=== PATIENT | female | born 1940 | race Caucasian/White ===

== ENCOUNTER 2023-12-23 16:56 | Emergency (ER) | payer OTHER, SELFPAY ==
[2023-12-23 17:07] VITALS: BP 142/89; PULSE 88; RESP 18; TEMP 36.6; O2SAT 99; BMI 20.6
--- NOTE | 2023-12-23 17:26 | XR_ITS ---
Examination: Duplex scan of the lower extremity, unilateral left complete Date and time of exam: December 23, 2023 1809 hrs. 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 There is no evidence of deep vein thrombosis. Normal color flow and spectral analysis Impression: Negative for DVT..
--- NOTE | 2023-12-23 17:26 | XR_ITS ---
EXAMINATION: Ankle, left 3 views . Technique: Ankle AP, oblique, lateral 3 views Date and time of exam: 07/22/2023 1731 hrs. 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 Recommend MRI tibia-fibula follow-up to exclude early osteomyelitis involving the tibia
--- NOTE | 2023-12-23 17:27 | PD.EDRME ---
Rapid Medical Screening Exam RME Arrival date/time: 12/23/23 16:56 83-year-old female presents to the emergency department complains of wound left lower extremity with delayed healing Chief Complaint: Skin/Abscess/Foreign Body Time Seen by Provider: 12/23/23 17:00 Vital signs: Vital Signs Temperature 97.9 F 12/23/23 17:07 Pulse Rate 88 12/23/23 17:07 Respiratory Rate 18 12/23/23 17:07 Blood Pressure 142/89 H 12/23/23 17:07 Pulse Oximetry (%) 99 12/23/23 17:07 Oxygen Delivery Method Room Air 12/23/23 17:07
[2023-12-23 18:15] LABS: Lactate (Lactic Acid) 0.9 mMol/L (0.4-2.0)
[2023-12-23 18:18] LABS: Basophils % (Auto) 1 % (0-2.5); Eosinophils # (Auto) 0.2 Thou/mm3 (0.0-0.5); Eosinophils % (Auto) 3 % (0-10); Hematocrit 35.3 % (36.0-46.0); Hemoglobin 11.7 g/dL (12.0-16.0); Immature Granulocytes % (Auto) 0 % (0-0); Immature Granulocytes Auto 0.02 Thou/mm3 (0.00-0.00); Lymphocytes # (Auto) 2.3 Thou/mm3 (1.0-4.8); Lymphocytes % (Auto) 32 % (10-50); Mean Corpuscular HGB Conc 33.1 g/dl (31.0-37.0); Mean Corpuscular Hemoglobin 31.1 pg (25.0-35.0); Mean Corpuscular Volume 94 fL (80-100); Monocytes # (Auto) 0.6 Thou/mm3 (0.0-0.8); Monocytes % (Auto) 8 % (0-12); Neutrophils # (Auto) 3.9 Thou/mm3 (1.8-7.7); Neutrophils % (Auto) 56 % (37-80); Nucleated Red Blood Cell % 0 /100 WBC (0); Platelet Count 321 Thou/mm3 (140-440); RDW Standard Deviation 44.1 fL (36.4-46.3); Red Blood Count 3.76 Miln/mm3 (4.00-5.20)
[2023-12-23 18:34] LABS: Sed Rate (ESR) 45 mm/hr (0-30)
[2023-12-23 18:45] LABS: Alanine Aminotransferase 11 U/L (10-49); Albumin/Globulin Ratio 1.7 (1.2-2.2); Alkaline Phosphatase 74 U/L (46-116); Anion Gap 7 (7-16); Aspartate Amino Transferase 24 U/L (0-34); BUN/Creatinine Ratio 19 Ratio (12-20); Bilirubin,Total 0.4 mg/dL (0.3-1.2); Blood Urea Nitrogen 31 mg/dL (9-23); C-Reactive Protein < 0.4 mg/dL (0.0-0.9); Calcium 10.1 mg/dL (8.3-10.6); Calcium (Corrected) 10.1 mg/dL (8.5-10.1); Carbon Dioxide 23.8 mMol/L (20.0-31.0); Chloride 109 mMol/L (98-107); Creatinine (Component) 1.6 mg/dL (0.6-1.3); Estimated Creatinine Clearance 20.7 mL/min (>60); Glucose 90 mg/dL (74-106); Osmolality,Calculated 285 (275-295); Potassium 3.6 mMol/L (3.4-5.1); Sodium 140 mMol/L (136-145); eGFR 32 See Note
[2023-12-23 18:49] LABS: Procalcitonin 0.08 ng/ml (0.0-0.49)
--- NOTE | 2023-12-23 19:01 | PC.NURSE ---
Pt and pt's family informed us that they are leaving and going home.
== END 2023-12-23 19:03 | disposition left against medical advice (07) ==
LOC: SERX 18:02
PROVIDERS: Nurse Practitioner Primary Care; Emergency Provider Emergency Medicine; PCP Family Medicine
DX: S91.002D Unspecified open wound, left ankle, subsequent encounter (principal); X58.XXXD Exposure to other specified factors, subsequent encounter; Z53.29 Procedure and treatment not carried out because of patient's decision for other reasons
CPT/HCPCS: 36415; 73610; 80053; 83605; 84145; 85025; 85652; 86140; 93971; 99281

== ENCOUNTER → 2024-01-08 | Outpatient (CLI) | payer OTHER, SELFPAY | END | disposition home or self-care (01) | LOC: SWHD 09:40 | PROVIDERS: PCP Nurse Practitioner Family; Referring Provider Nurse Practitioner Family; Visit Provider Student in an Organized Health Care Education/Training Program | DX: L97.822 Non-pressure chronic ulcer of other part of left lower leg with fat layer exposed (principal); I10 Essential (primary) hypertension; E11.69 Type 2 diabetes mellitus with other specified complication; E03.9 Hypothyroidism, unspecified; F03.90 Unspecified dementia, unspecified severity, without behavioral disturbance, psychotic disturbance, mood disturbance, and anxiety | CPT/HCPCS: 97597; 97598; 99213; A9270; G0463 ==

== ENCOUNTER → 2024-01-08 | Outpatient (CLI) | payer OTHER, SELFPAY | END | disposition home or self-care (01) | LOC: SLDO 16:15 | PROVIDERS: Referring Provider Student in an Organized Health Care Education/Training Program; Visit Provider Student in an Organized Health Care Education/Training Program | DX: L97.822 Non-pressure chronic ulcer of other part of left lower leg with fat layer exposed (principal) | CPT/HCPCS: 87070; 87075; 87077; 87186; 87205 ==

== ENCOUNTER → 2024-01-08 | Outpatient (CLI) | payer OTHER, SELFPAY ==
[2024-01-08 10:58] LABS: Basophils % (Auto) 1 % (0-2.5); Eosinophils # (Auto) 0.2 Thou/mm3 (0.0-0.5); Eosinophils % (Auto) 4 % (0-10); Hematocrit 34.2 % (36.0-46.0); Hemoglobin 11.4 g/dL (12.0-16.0); Immature Granulocytes % (Auto) 0 % (0-0); Immature Granulocytes Auto 0.02 Thou/mm3 (0.00-0.00); Lymphocytes % (Auto) 31 % (10-50); Mean Corpuscular HGB Conc 33.3 g/dl (31.0-37.0); Mean Corpuscular Hemoglobin 31.5 pg (25.0-35.0); Mean Corpuscular Volume 95 fL (80-100); Monocytes # (Auto) 0.6 Thou/mm3 (0.0-0.8); Monocytes % (Auto) 10 % (0-12); Neutrophils # (Auto) 3.4 Thou/mm3 (1.8-7.7); Neutrophils % (Auto) 55 % (37-80); Nucleated Red Blood Cell % 0 /100 WBC (0); Platelet Count 278 Thou/mm3 (140-440); RDW Standard Deviation 43.8 fL (36.4-46.3); Red Blood Count 3.62 Miln/mm3 (4.00-5.20); White Blood Count 6.2 Thou/mm3 (3.6-11.0)
[2024-01-08 11:02] LABS: Parathyroid Hormone Intact 142.2 pg/ml (18.5-88.0)
[2024-01-08 11:03] LABS: Alanine Aminotransferase 12 U/L (10-49); Albumin, Serum 4.9 gm/dL (3.4-4.8); Albumin/Globulin Ratio 1.7 (1.2-2.2); Alkaline Phosphatase 71 U/L (46-116); Anion Gap 9 (7-16); Aspartate Amino Transferase 23 U/L (0-34); BUN/Creatinine Ratio 20 Ratio (12-20); Bilirubin,Total 0.4 mg/dL (0.3-1.2); Blood Urea Nitrogen 38 mg/dL (9-23); Calcium 9.9 mg/dL (8.3-10.6); Calcium (Corrected) 9.9 mg/dL (8.5-10.1); Carbon Dioxide 25.4 mMol/L (20.0-31.0); Chloride 105 mMol/L (98-107); Creatinine (Component) 1.9 mg/dL (0.6-1.3); Globulin 2.9 gm/dL (2.3-3.5); Glucose 79 mg/dL (74-106); Osmolality,Calculated 285 (275-295); Sodium 139 mMol/L (136-145); Total Protein 7.8 gm/dL (5.7-8.2); eGFR 26 See Note
[2024-01-08 11:33] LABS: Folate 12.68 ng/mL (>5.38); Vitamin B12 595 pg/mL (211-911)
[2024-01-15 06:50] LABS: Homocysteine* 37.1 umol/L (<10.4); Methylmalonic Acid, GC/MS/MS* 249 nmol/L (85-423)
== END | disposition home or self-care (01) ==
LOC: COPL 08:59
PROVIDERS: PCP Nurse Practitioner Family; Referring Provider Nurse Practitioner Family; Visit Provider Nurse Practitioner Family
DX: D64.9 Anemia, unspecified (principal); N17.9 Acute kidney failure, unspecified
CPT/HCPCS: 36415; 80053; 82607; 82746; 83090; 83921; 83970; 85025

== ENCOUNTER → 2024-01-15 | Outpatient (CLI) | payer OTHER, SELFPAY | END | disposition home or self-care (01) | LOC: SWHD 13:42 | PROVIDERS: PCP Family Medicine; Referring Provider Family Medicine; Visit Provider Surgery | DX: L97.822 Non-pressure chronic ulcer of other part of left lower leg with fat layer exposed (principal); I10 Essential (primary) hypertension; E11.69 Type 2 diabetes mellitus with other specified complication; E03.9 Hypothyroidism, unspecified; F03.90 Unspecified dementia, unspecified severity, without behavioral disturbance, psychotic disturbance, mood disturbance, and anxiety | CPT/HCPCS: 97597; A9270 ==

== ENCOUNTER → 2024-01-15 | Outpatient (CLI) | payer OTHER, SELFPAY ==
--- NOTE | 2024-01-15 08:38 | XR_ITS ---
Examination: Retroperitoneal ultrasound, complete Technique: Multiple high resolution grayscale images of the retroperitoneum obtained, including kidneys and bladder. Exam date and time:January 15, 2024 0848 hours INDICATIONS: Diagnosis chronic kidney disease stage IV, elevated creatinine 1.9 on laboratory examination January 08, 2024 FINDINGS: Right kidney 9.0 x 4.5 x 4.9 cm cortex 1.3 cm Left kidney 9.4 x 3.8 x 4.4 cm cortex 1.6 cm Mild bilateral renal parenchymal scar formation No hydronephrosis No bladder mass or bladder calculi Bladder prevoid volume 94 cc postvoid volume 20 cc IMPRESSION: Small kidneys with bilateral renal cortical thinning Mild bilateral renal parenchymal scar formation No hydronephrosis
[2024-01-15 09:59] LABS: Misc Send Out* See Sep Rpt
[2024-01-15 10:41] LABS: Basophils % (Auto) 0 % (0-2.5); Eosinophils # (Auto) 0.2 Thou/mm3 (0.0-0.5); Eosinophils % (Auto) 2 % (0-10); Hematocrit 33.5 % (36.0-46.0); Hemoglobin 11.2 g/dL (12.0-16.0); Immature Granulocytes % (Auto) 0 % (0-0); Immature Granulocytes Auto 0.01 Thou/mm3 (0.00-0.00); Immature Reticulocyte Fraction 5.7 % (3.0-15.9); Lymphocytes # (Auto) 1.7 Thou/mm3 (1.0-4.8); Lymphocytes % (Auto) 25 % (10-50); Mean Corpuscular HGB Conc 33.4 g/dl (31.0-37.0); Mean Corpuscular Hemoglobin 31.4 pg (25.0-35.0); Mean Corpuscular Volume 94 fL (80-100); Monocytes # (Auto) 0.5 Thou/mm3 (0.0-0.8); Monocytes % (Auto) 7 % (0-12); Neutrophils # (Auto) 4.5 Thou/mm3 (1.8-7.7); Neutrophils % (Auto) 65 % (37-80); Nucleated Red Blood Cell % 0 /100 WBC (0); Platelet Count 282 Thou/mm3 (140-440); RDW Standard Deviation 43.3 fL (36.4-46.3); Red Blood Count 3.57 Miln/mm3 (4.00-5.20); Reticulocyte Hgb Content 35.8 pg (28.0-35.0); White Blood Count 6.9 Thou/mm3 (3.6-11.0)
[2024-01-15 10:55] LABS: Glucose Estimated Average 97 mg/dL (80-131)
[2024-01-15 11:06] LABS: Parathyroid Hormone Intact 91.9 pg/ml (18.5-88.0)
[2024-01-15 11:11] LABS: Folate 12.37 ng/mL (>5.38); Vitamin B12 570 pg/mL (211-911); Vitamin D 25 Hydroxy Total 46.6 ng/mL (7.3-40.2)
[2024-01-15 11:17] LABS: Alanine Aminotransferase 16 U/L (10-49); Albumin, Serum 4.9 gm/dL (3.4-4.8); Albumin/Globulin Ratio 2.1 (1.2-2.2); Alkaline Phosphatase 59 U/L (46-116); Anion Gap 11 (7-16); Aspartate Amino Transferase 26 U/L (0-34); BUN/Creatinine Ratio 20 Ratio (12-20); Bilirubin,Total 0.5 mg/dL (0.3-1.2); Blood Urea Nitrogen 22 mg/dL (9-23); Calcium 9.6 mg/dL (8.3-10.6); Calcium (Corrected) 9.6 mg/dL (8.5-10.1); Carbon Dioxide 21.5 mMol/L (20.0-31.0); Cardiac Risk Estimate 3.1 RATIO (3.7-5.6); Chloride 105 mMol/L (98-107); Cholesterol 201 mg/dL (132-200); Creatinine (Component) 1.1 mg/dL (0.6-1.3); Free T4 (Free Thyroxine) 2.04 ng/dL (0.89-1.76); Globulin 2.3 gm/dL (2.3-3.5); Glucose 80 mg/dL (74-106); HDL Cholesterol 64 mg/dL (40-60); LDL Cholesterol,Calculated 119 mg/dL (0-130); Osmolality,Calculated 276 (275-295); Phosphorous 1.7 mg/dL (2.4-5.1); Potassium 3.8 mMol/L (3.4-5.1); Sodium 137 mMol/L (136-145); Thyroid Stimulating Hormone 0.79 uIU/mL (0.55-4.78); Total Protein 7.2 gm/dL (5.7-8.2); Triglycerides 88 mg/dL (30-150); Uric Acid 8.4 mg/dL (3.1-7.8); eGFR 50 See Note
[2024-01-15 11:49] LABS: Collection Type, Urine Clean Catch
[2024-01-15 12:19] LABS: Creatinine MALB Rnd Ur 17 mg/dL (30-125); Microalbumin Creat Ratio 76 mg/gCrea (<30); Microalbumin, Random Urine 13 mg/L (0-300)
[2024-01-15 12:20] LABS: Ferritin 74 ng/mL (7.3-270.7); Iron 78 mcg/dL (50-170); Percent Iron Saturation 27 % (20-55); Total Iron Binding Capacity 279 mcg/dL (250-425); Unsaturated Iron Binding 201 (225-295)
[2024-01-15 13:20] LABS: Bacteria,Urine 3+; Bilirubin,Urine Negative (Negative); Blood,Urine Trace (Negative); Clarity,Urine Turbid (Clear/Hazy); Color,Urine Colorless (Lt Yel-Yel); Glucose, Urine Negative (Negative); Ketones,Urine Negative (Negative); Leukocyte Esterase,Urine Positive (Negative); Nitrite,Urine Negative (Negative); Protein,Urine Negative (Neg - Trace); RBC,Urine 1 /hpf (0-3); Specific Gravity,Urine 1.004 (1.001-1.035); Squamous Epithelial Cell,Urine < 1 /hpf (0-5); Urobilinogen,Urine Negative mg/dL (0.0-1.0); WBC,Urine 21 /hpf (0-5)
[2024-01-22 06:50] LABS: ANA Screen, IFA NEGATIVE (NEGATIVE)
== END | disposition home or self-care (01) ==
LOC: CDIM 08:35 → COPL 09:25
PROVIDERS: Nurse Practitioner Family; PCP Family Medicine; Referring Provider Internal Medicine Nephrology; Visit Provider Radiology Diagnostic Radiology
DX: N28.89 Other specified disorders of kidney and ureter (principal); I12.9 Hypertensive chronic kidney disease with stage 1 through stage 4 chronic kidney disease, or unspecified chronic kidney disease; N18.4 Chronic kidney disease, stage 4 (severe); D63.1 Anemia in chronic kidney disease; N39.0 Urinary tract infection, site not specified; E78.5 Hyperlipidemia, unspecified; R73.9 Hyperglycemia, unspecified; M10.30 Gout due to renal impairment, unspecified site; E21.3 Hyperparathyroidism, unspecified; E03.9 Hypothyroidism, unspecified; E55.9 Vitamin D deficiency, unspecified
CPT/HCPCS: 36415; 76770; 80053; 80061; 81001; 82043; 82306; 82570; 82607; 82610; 82728; 82746; 83036; 83540; 83550; 83970; 84100; 84439; 84443; 84550; 85025; 85046; 86038

== ENCOUNTER → 2024-01-22 | Outpatient (CLI) | payer OTHER, SELFPAY | END | disposition home or self-care (01) | LOC: SWHD 14:20 | PROVIDERS: PCP Family Medicine; Referring Provider Family Medicine; Visit Provider Student in an Organized Health Care Education/Training Program | DX: L97.822 Non-pressure chronic ulcer of other part of left lower leg with fat layer exposed (principal); I10 Essential (primary) hypertension; E11.69 Type 2 diabetes mellitus with other specified complication; E03.9 Hypothyroidism, unspecified; F03.90 Unspecified dementia, unspecified severity, without behavioral disturbance, psychotic disturbance, mood disturbance, and anxiety | CPT/HCPCS: 11042; A9270 ==

== ENCOUNTER → 2024-01-29 | Outpatient (CLI) | payer OTHER, SELFPAY ==
[2024-01-29 09:30] LABS: Basophils % (Auto) 1 % (0-2.5); Eosinophils # (Auto) 0.1 Thou/mm3 (0.0-0.5); Eosinophils % (Auto) 2 % (0-10); Hematocrit 33.1 % (36.0-46.0); Hemoglobin 11.2 g/dL (12.0-16.0); Immature Granulocytes % (Auto) 0 % (0-0); Immature Granulocytes Auto 0.01 Thou/mm3 (0.00-0.00); Lymphocytes # (Auto) 1.4 Thou/mm3 (1.0-4.8); Lymphocytes % (Auto) 27 % (10-50); Mean Corpuscular HGB Conc 33.8 g/dl (31.0-37.0); Mean Corpuscular Hemoglobin 31.5 pg (25.0-35.0); Mean Corpuscular Volume 93 fL (80-100); Monocytes # (Auto) 0.4 Thou/mm3 (0.0-0.8); Monocytes % (Auto) 8 % (0-12); Neutrophils # (Auto) 3.2 Thou/mm3 (1.8-7.7); Neutrophils % (Auto) 61 % (37-80); Nucleated Red Blood Cell % 0 /100 WBC (0); Platelet Count 274 Thou/mm3 (140-440); RDW Standard Deviation 43.8 fL (36.4-46.3); Red Blood Count 3.55 Miln/mm3 (4.00-5.20); White Blood Count 5.3 Thou/mm3 (3.6-11.0)
[2024-01-29 09:59] LABS: Folate 12.51 ng/mL (>5.38); Vitamin B12 529 pg/mL (211-911)
[2024-01-29 10:04] LABS: Alanine Aminotransferase 15 U/L (10-49); Albumin, Serum 4.7 gm/dL (3.4-4.8); Alkaline Phosphatase 61 U/L (46-116); Anion Gap 9 (7-16); Aspartate Amino Transferase 20 U/L (0-34); BUN/Creatinine Ratio 18 Ratio (12-20); Bilirubin,Total 0.4 mg/dL (0.3-1.2); Blood Urea Nitrogen 16 mg/dL (9-23); Carbon Dioxide 23.8 mMol/L (20.0-31.0); Cardiac Risk Estimate 2.9 RATIO (3.7-5.6); Chloride 108 mMol/L (98-107); Cholesterol 185 mg/dL (132-200); Creatinine (Component) 0.9 mg/dL (0.6-1.3); Free T4 (Free Thyroxine) 1.66 ng/dL (0.89-1.76); Globulin 2.4 gm/dL (2.3-3.5); Glucose 89 mg/dL (74-106); HDL Cholesterol 63 mg/dL (40-60); LDL Cholesterol,Calculated 102 mg/dL (0-130); Osmolality,Calculated 281 (275-295); Phosphorous 3.4 mg/dL (2.4-5.1); Potassium 3.7 mMol/L (3.4-5.1); Sodium 141 mMol/L (136-145); Thyroid Stimulating Hormone 0.62 uIU/mL (0.55-4.78); Total Protein 7.1 gm/dL (5.7-8.2); Triglycerides 100 mg/dL (30-150); eGFR > 60 See Note
[2024-01-29 11:02] LABS: Ferritin 75 ng/mL (7.3-270.7); Total Iron Binding Capacity 277 mcg/dL (250-425)
[2024-01-29 11:12] LABS: Iron 84 mcg/dL (50-170); Percent Iron Saturation 30 % (20-55); Unsaturated Iron Binding 193 (225-295)
[2024-01-29 17:46] LABS: Creatinine MALB Rnd Ur 32 mg/dL (30-125); Microalbumin Creat Ratio 16 mg/gCrea (<30); Microalbumin, Random Urine 5 mg/L (0-300)
== END | disposition home or self-care (01) ==
PROVIDERS: PCP Family Medicine; Referring Provider Internal Medicine Nephrology; Visit Provider Internal Medicine Nephrology
DX: I12.9 Hypertensive chronic kidney disease with stage 1 through stage 4 chronic kidney disease, or unspecified chronic kidney disease (principal); N18.9 Chronic kidney disease, unspecified; D63.1 Anemia in chronic kidney disease; E21.3 Hyperparathyroidism, unspecified; E78.5 Hyperlipidemia, unspecified; E03.9 Hypothyroidism, unspecified; M10.30 Gout due to renal impairment, unspecified site
CPT/HCPCS: 36415; 80053; 80061; 82043; 82570; 82607; 82728; 82746; 83540; 83550; 83970; 84100; 84439; 84443; 84550; 85025

== ENCOUNTER → 2024-01-29 | Outpatient (CLI) | payer OTHER, SELFPAY | END | disposition home or self-care (01) | LOC: SWHD 14:37 | PROVIDERS: PCP Family Medicine; Referring Provider Family Medicine; Visit Provider Student in an Organized Health Care Education/Training Program | DX: L97.822 Non-pressure chronic ulcer of other part of left lower leg with fat layer exposed (principal); I10 Essential (primary) hypertension; E11.69 Type 2 diabetes mellitus with other specified complication; E03.9 Hypothyroidism, unspecified; F03.90 Unspecified dementia, unspecified severity, without behavioral disturbance, psychotic disturbance, mood disturbance, and anxiety | CPT/HCPCS: 29581; A9270 ==

== ENCOUNTER → 2024-02-14 | Outpatient (CLI) | payer OTHER, SELFPAY | END | disposition home or self-care (01) | LOC: SWHD 13:18 | PROVIDERS: PCP Family Medicine; Referring Provider Family Medicine; Visit Provider Surgery | DX: L97.822 Non-pressure chronic ulcer of other part of left lower leg with fat layer exposed (principal); I10 Essential (primary) hypertension; E11.69 Type 2 diabetes mellitus with other specified complication; E03.9 Hypothyroidism, unspecified; F03.90 Unspecified dementia, unspecified severity, without behavioral disturbance, psychotic disturbance, mood disturbance, and anxiety | CPT/HCPCS: 11042; A9270 ==

== ENCOUNTER → 2024-02-19 | Outpatient (CLI) | payer OTHER, SELFPAY ==
[2024-02-19 11:56] LABS: Basophils % (Auto) 1 % (0-2.5); Eosinophils # (Auto) 0.2 Thou/mm3 (0.0-0.5); Eosinophils % (Auto) 3 % (0-10); Hematocrit 36.1 % (36.0-46.0); Immature Granulocytes % (Auto) 0 % (0-0); Immature Granulocytes Auto 0.01 Thou/mm3 (0.00-0.00); Lymphocytes # (Auto) 1.8 Thou/mm3 (1.0-4.8); Lymphocytes % (Auto) 29 % (10-50); Mean Corpuscular HGB Conc 33.2 g/dl (31.0-37.0); Mean Corpuscular Hemoglobin 31.4 pg (25.0-35.0); Mean Corpuscular Volume 95 fL (80-100); Monocytes # (Auto) 0.6 Thou/mm3 (0.0-0.8); Monocytes % (Auto) 11 % (0-12); Neutrophils # (Auto) 3.5 Thou/mm3 (1.8-7.7); Neutrophils % (Auto) 57 % (37-80); Nucleated Red Blood Cell % 0 /100 WBC (0); Platelet Count 287 Thou/mm3 (140-440); RDW Standard Deviation 44.4 fL (36.4-46.3); Red Blood Count 3.82 Miln/mm3 (4.00-5.20); White Blood Count 6.1 Thou/mm3 (3.6-11.0)
[2024-02-19 12:08] LABS: Alanine Aminotransferase 13 U/L (10-49); Albumin, Serum 4.7 gm/dL (3.4-4.8); Albumin/Globulin Ratio 1.8 (1.2-2.2); Alkaline Phosphatase 76 U/L (46-116); Anion Gap 10 (7-16); Aspartate Amino Transferase 24 U/L (0-34); BUN/Creatinine Ratio 19 Ratio (12-20); Bilirubin,Total 0.3 mg/dL (0.3-1.2); Blood Urea Nitrogen 17 mg/dL (9-23); Calcium 10.1 mg/dL (8.3-10.6); Calcium (Corrected) 10.1 mg/dL (8.5-10.1); Carbon Dioxide 23.5 mMol/L (20.0-31.0); Chloride 108 mMol/L (98-107); Creatinine (Component) 0.9 mg/dL (0.6-1.3); Globulin 2.6 gm/dL (2.3-3.5); Glucose 88 mg/dL (74-106); Osmolality,Calculated 281 (275-295); Phosphorous 3.5 mg/dL (2.4-5.1); Sodium 141 mMol/L (136-145); Total Protein 7.3 gm/dL (5.7-8.2); eGFR > 60 See Note
[2024-02-19 18:32] LABS: Folate 15.37 ng/mL (>5.38); Vitamin B12 377 pg/mL (211-911)
[2024-02-19 18:38] LABS: Parathyroid Hormone Intact 53.1 pg/ml (18.5-88.0)
[2024-02-19 20:57] LABS: Ferritin 54 ng/mL (7.3-270.7); Iron 69 mcg/dL (50-170); Total Iron Binding Capacity 310 mcg/dL (250-425)
== END | disposition home or self-care (01) ==
LOC: COPL 10:56
PROVIDERS: PCP Family Medicine; Referring Provider Internal Medicine Nephrology; Visit Provider Internal Medicine Nephrology
DX: I12.9 Hypertensive chronic kidney disease with stage 1 through stage 4 chronic kidney disease, or unspecified chronic kidney disease (principal); N18.9 Chronic kidney disease, unspecified; D63.1 Anemia in chronic kidney disease; E21.3 Hyperparathyroidism, unspecified
CPT/HCPCS: 36415; 80053; 82607; 82728; 82746; 83540; 83550; 83970; 84100; 85025

== ENCOUNTER → 2024-02-20 | Outpatient (CLI) | payer OTHER, SELFPAY | END | disposition home or self-care (01) | LOC: SWHD 10:24 | PROVIDERS: PCP Family Medicine; Referring Provider Family Medicine; Visit Provider Surgery | DX: I10 Essential (primary) hypertension (principal); E11.69 Type 2 diabetes mellitus with other specified complication; E03.9 Hypothyroidism, unspecified; F03.90 Unspecified dementia, unspecified severity, without behavioral disturbance, psychotic disturbance, mood disturbance, and anxiety | CPT/HCPCS: 11042; A9270 ==

== ENCOUNTER → 2024-02-27 | Outpatient (CLI) | payer OTHER, SELFPAY | END | disposition home or self-care (01) | LOC: SWHD 13:25 | PROVIDERS: PCP Family Medicine; Referring Provider Family Medicine; Visit Provider Student in an Organized Health Care Education/Training Program | DX: L97.822 Non-pressure chronic ulcer of other part of left lower leg with fat layer exposed (principal); I10 Essential (primary) hypertension; E11.69 Type 2 diabetes mellitus with other specified complication; E03.9 Hypothyroidism, unspecified; L85.3 Xerosis cutis; F03.90 Unspecified dementia, unspecified severity, without behavioral disturbance, psychotic disturbance, mood disturbance, and anxiety; R60.0 Localized edema | CPT/HCPCS: 29581; A9270 ==

== ENCOUNTER → 2024-03-04 | Outpatient (CLI) | payer OTHER, SELFPAY ==
--- NOTE | 2024-03-04 | XR_ITS ---
Examination: Left lower leg 2 views Technique one AP lateral left lower leg 2 views Exam date and time: March 04, 2024 1402 hours INDICATIONS: Anterior lower leg pain beginning 3 months ago. FINDINGS: No fracture or dislocation Moderate osteopenia Soft tissue vascular calcification No cortical bone obstruction IMPRESSION: No fracture or dislocation
[2024-03-04 14:25] LABS: Basophils % (Auto) 0 % (0-2.5); Eosinophils # (Auto) 0.1 Thou/mm3 (0.0-0.5); Eosinophils % (Auto) 2 % (0-10); Hematocrit 37.5 % (36.0-46.0); Hemoglobin 12.5 g/dL (12.0-16.0); Immature Granulocytes % (Auto) 0 % (0-0); Immature Granulocytes Auto 0.01 Thou/mm3 (0.00-0.00); Lymphocytes % (Auto) 32 % (10-50); Mean Corpuscular HGB Conc 33.3 g/dl (31.0-37.0); Mean Corpuscular Volume 93 fL (80-100); Monocytes # (Auto) 0.6 Thou/mm3 (0.0-0.8); Monocytes % (Auto) 9 % (0-12); Neutrophils # (Auto) 3.5 Thou/mm3 (1.8-7.7); Neutrophils % (Auto) 57 % (37-80); Nucleated Red Blood Cell % 0 /100 WBC (0); Platelet Count 306 Thou/mm3 (140-440); RDW Standard Deviation 42.9 fL (36.4-46.3); Red Blood Count 4.03 Miln/mm3 (4.00-5.20); White Blood Count 6.2 Thou/mm3 (3.6-11.0)
[2024-03-04 14:39] LABS: Alanine Aminotransferase 12 U/L (10-49); Albumin, Serum 4.8 gm/dL (3.4-4.8); Albumin/Globulin Ratio 1.8 (1.2-2.2); Alkaline Phosphatase 66 U/L (46-116); Anion Gap 10 (7-16); Aspartate Amino Transferase 18 U/L (0-34); BUN/Creatinine Ratio 20 Ratio (12-20); Bilirubin,Total 0.5 mg/dL (0.3-1.2); Blood Urea Nitrogen 16 mg/dL (9-23); Carbon Dioxide 23.5 mMol/L (20.0-31.0); Cardiac Risk Estimate 2.8 RATIO (3.7-5.6); Chloride 107 mMol/L (98-107); Cholesterol 208 mg/dL (132-200); Creatinine (Component) 0.8 mg/dL (0.6-1.3); Globulin 2.7 gm/dL (2.3-3.5); Glucose 82 mg/dL (74-106); HDL Cholesterol 74 mg/dL (40-60); LDL Cholesterol,Calculated 116 mg/dL (0-130); Osmolality,Calculated 279 (275-295); Potassium 3.9 mMol/L (3.4-5.1); Sodium 140 mMol/L (136-145); Thyroid Stimulating Hormone 0.69 uIU/mL (0.55-4.78); Total Protein 7.5 gm/dL (5.7-8.2); Triglycerides 91 mg/dL (30-150); eGFR > 60 See Note
[2024-03-04 14:41] LABS: Glucose Estimated Average 94 mg/dL (80-131); Hemoglobin A1C 4.9 % Hgb (4.8-6.0)
== END | disposition home or self-care (01) ==
PROVIDERS: PCP Family Medicine; Referring Provider Nurse Practitioner Family; Visit Provider Nurse Practitioner Family
DX: M79.605 Pain in left leg (principal); M79.604 Pain in right leg; I10 Essential (primary) hypertension; E03.9 Hypothyroidism, unspecified; E78.5 Hyperlipidemia, unspecified
CPT/HCPCS: 36415; 73590; 80053; 80061; 83036; 84436; 84443; 85025

== ENCOUNTER → 2024-03-05 | Outpatient (CLI) | payer OTHER, SELFPAY | END | disposition home or self-care (01) | LOC: SWHD 13:38 | PROVIDERS: PCP Family Medicine; Referring Provider Family Medicine; Visit Provider Student in an Organized Health Care Education/Training Program | DX: L97.822 Non-pressure chronic ulcer of other part of left lower leg with fat layer exposed (principal); S81.802A Unspecified open wound, left lower leg, initial encounter; X58.XXXA Exposure to other specified factors, initial encounter; E11.69 Type 2 diabetes mellitus with other specified complication; E03.9 Hypothyroidism, unspecified; L85.3 Xerosis cutis; F03.90 Unspecified dementia, unspecified severity, without behavioral disturbance, psychotic disturbance, mood disturbance, and anxiety; R60.0 Localized edema | CPT/HCPCS: 99213; G0463 ==

== ENCOUNTER → 2024-03-11 | Outpatient (CLI) | payer OTHER, MEDICAID, SELFPAY ==
[2024-03-11 12:08] LABS: Basophils % (Auto) 1 % (0-2.5); Eosinophils # (Auto) 0.1 Thou/mm3 (0.0-0.5); Eosinophils % (Auto) 2 % (0-10); Hematocrit 35.8 % (36.0-46.0); Immature Granulocytes % (Auto) 0 % (0-0); Immature Granulocytes Auto 0.01 Thou/mm3 (0.00-0.00); Lymphocytes # (Auto) 2.1 Thou/mm3 (1.0-4.8); Lymphocytes % (Auto) 33 % (10-50); Mean Corpuscular HGB Conc 33.5 g/dl (31.0-37.0); Mean Corpuscular Hemoglobin 31.5 pg (25.0-35.0); Mean Corpuscular Volume 94 fL (80-100); Monocytes # (Auto) 0.6 Thou/mm3 (0.0-0.8); Monocytes % (Auto) 9 % (0-12); Neutrophils # (Auto) 3.6 Thou/mm3 (1.8-7.7); Neutrophils % (Auto) 56 % (37-80); Nucleated Red Blood Cell % 0 /100 WBC (0); Platelet Count 279 Thou/mm3 (140-440); RDW Standard Deviation 43.4 fL (36.4-46.3); Red Blood Count 3.81 Miln/mm3 (4.00-5.20); White Blood Count 6.4 Thou/mm3 (3.6-11.0)
[2024-03-11 12:16] LABS: Alanine Aminotransferase 15 U/L (10-49); Albumin, Serum 4.5 gm/dL (3.4-4.8); Albumin/Globulin Ratio 1.7 (1.2-2.2); Alkaline Phosphatase 65 U/L (46-116); Anion Gap 10 (7-16); Aspartate Amino Transferase 25 U/L (0-34); BUN/Creatinine Ratio 18 Ratio (12-20); Bilirubin,Total 0.5 mg/dL (0.3-1.2); Blood Urea Nitrogen 14 mg/dL (9-23); Carbon Dioxide 23.4 mMol/L (20.0-31.0); Chloride 108 mMol/L (98-107); Creatinine (Component) 0.8 mg/dL (0.6-1.3); Globulin 2.6 gm/dL (2.3-3.5); Glucose 84 mg/dL (74-106); Osmolality,Calculated 280 (275-295); Potassium 4.1 mMol/L (3.4-5.1); Sodium 141 mMol/L (136-145); Total Protein 7.1 gm/dL (5.7-8.2); eGFR > 60 See Note
== END | disposition home or self-care (01) ==
PROVIDERS: PCP Family Medicine; Referring Provider Internal Medicine Nephrology; Visit Provider Internal Medicine Nephrology
DX: I12.9 Hypertensive chronic kidney disease with stage 1 through stage 4 chronic kidney disease, or unspecified chronic kidney disease (principal); N18.9 Chronic kidney disease, unspecified; D63.1 Anemia in chronic kidney disease
CPT/HCPCS: 36415; 80053; 85025

== ENCOUNTER → 2024-03-12 | Outpatient (CLI) | payer OTHER, MEDICAID, SELFPAY | END | disposition home or self-care (01) | PROVIDERS: PCP Family Medicine; Referring Provider Family Medicine; Visit Provider Student in an Organized Health Care Education/Training Program | DX: L97.822 Non-pressure chronic ulcer of other part of left lower leg with fat layer exposed (principal); S81.802A Unspecified open wound, left lower leg, initial encounter; X58.XXXA Exposure to other specified factors, initial encounter; E11.69 Type 2 diabetes mellitus with other specified complication; R60.0 Localized edema; F03.90 Unspecified dementia, unspecified severity, without behavioral disturbance, psychotic disturbance, mood disturbance, and anxiety; L85.3 Xerosis cutis; E03.9 Hypothyroidism, unspecified | CPT/HCPCS: 99213; G0463 ==

== ENCOUNTER 2024-03-15 01:53 | Emergency (ER) | payer OTHER, MEDICAID, SELFPAY ==
[2024-03-15 02:03] VITALS: BP 135/70; PULSE 90; RESP 17; TEMP 36.4; O2SAT 100
[2024-03-15 02:06] VITALS: BMI 21.5
--- NOTE | 2024-03-15 02:30 | EKG_ITS ---
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
--- NOTE | 2024-03-15 02:30 | EDNOTE_ITS ---
ED Abdominal Pain RME/HPI General Chief Complaint: Abdominal Pain Stated complaint: ABD PAIN Time seen by provider: 03/15/24 02:00 Arrival date/time: 03/15/24 01:53 RME / HPI RME / HPI narrative: Dr. Pressley?s Main ED Evaluation: 83yo female with a history of dementia, HTN, HLD, IBS BIBA from home presents to the ED for a chief complaint of abdominal pain. Patient notes she's had 10 emetic episodes and diarrhea tonight, reporting she was initially constipated. She denies any previous abdominal surgeries. She does not specify how long she's had abdominal pain nor does she describe it. She also complains of right hip pain. Denies any other associated symptoms. No known allergies. Related Data Home Medications ?Medication ?Instructions ?Recorded ?Confirmed levothyroxine 50 mcg capsule 50 mcg PO QDAY 04/20/21 0 10/18/23 furosemide 20 mg tablet 20 mg PO QDAY 05/19/2310/17 Previous Rx's ?Medication ?Instructions ?Recorded pantoprazole 40 mg tablet,delayed 40 mg PO QDAY #30 ta bs 10/15/21 release (Protonix) cephalexin 500 mg capsule 500 mg PO BID #14 caps 10/17 cephalexin 500 mg capsule 500 mg PO BID Urinary tract 03/15/24 infection #20 caps ondansetron 4 mg disintegrating 4 mg PO Q6H PRN nausea and 03/15/24 tablet vomiting #14 tabs Allergies Allergy/AdvReac Type Severity Reaction Status Date / Time No Known Allergies Allergy Verified 05/19/23 11:43 Review of Systems Review of Systems Systems Reviewed: All systems reviewed, normal except as documented ED Exam Narrative Physical exam: GENERAL APPEARANCE: alert and oriented x 4, well-developed, well-nourished, no acute distress VITALS: All vitals were reviewed and the pulse ox is 100% on room air, which is normal according to my interpretation. HEENT: Normocephalic, atraumatic; pupils equal, round, reactive to light; EOMI; mucous membranes pink, moist; oropharynx clear NECK: Supple LUNGS: CTABL; no wheezes, no rales, no rhonchi HEART: Regular rate, regular rhythm; normal S1, S2; no murmurs ABDOMEN: non distended; normal BS; soft, mild generalized abdominal tenderness, no guarding, no rebound; no masses, no organomegaly, no hernia BACK: no CVA tenderness EXTREMITIES: atraumatic; no edema NEUROLOGIC: awake; alert and oriented x4; cranial nerves II-XII grossly intact; no focal sensory or motor deficits PSYCHIATRIC: appropriate mood and affect SKIN: warm, dry, normal color; no rashes Course Quality Measures none Orders Category Date Time Status Bedside COVID-19 Antigen Test NOW Care 03/15/24 02:32 Active Bedside Influenza A&B Antigen Test NOW Care 03/15/24 02:32 Completed Polisher Implant STAT Care 03/15/24 02:31 Active Continuous Pulse Oximetry ONCE Care 03/15/24 02:31 Completed EKG (ED ONLY) *Do not use* NOW Care 03/15/24 02:31 Completed In and Out Catheter X1 Care 03/15/24 02:31 Completed Insert IV STAT Care 03/15/24 02:31 Active Miscellaneous Nursing Order NOW Care 03/15/24 03:41 Active EKG (ED Only) Stat Exams 03/15/24 02:30 Draft XR hip RT w pelvis 2-3V Stat Exams 03/15/24 02:47 Taken CBC Stat Lab 03/15/24 02:59 Completed CMP [Comprehensive Metabolic Panel] Stat Lab 03/15/24 02:59 Completed Lipase Stat Lab 03/15/24 02:59 Completed Magnesium Stat Lab 03/15/24 02:59 Completed Troponin I Stat Lab 03/15/24 02:59 Completed Urinalysis, C/S if Indicated Stat Lab 03/15/24 03:30 Completed Urine Culture Stat Lab 03/15/24 03:30 Received Ondansetron Inj [Zofran Inj] Med 03/15/24 02:47 Discontinued 4 mg IV X1 ONE Sodium Chloride 0.9% 1000 ml [Ns] 1,000 ml Med 03/15/24 02:47 Discontinued IV 999 mls/hr Vital Signs Vital signs: Vital Signs Temperature 97.5 F 03/15/24 02:03 Pulse Rate 90 03/15/24 02:03 Respiratory Rate 17 03/15/24 02:03 Blood Pressure 135/70 H 03/15/24 02:03 Pulse Oximetry (%) 100 03/15/24 02:03 Oxygen Delivery Method Room Air 03/15/24 02:03 Abdominal Pain MDM MDM Narrative MDM Narrative:: Scribe Attestation: 03/15/24 - Laura Fitzgerald am scribing for and in the presence of Dr. Pressley. Patient data External records reviewed:: [facility] previous records (Per chart review, patient was seen here on 10/18/23 for UTI.) Clinical information provided by:: patient Social determinants that could affect healthcare access:: none Patient has the following chronic illnesses:: dementia, HTN, HLD, IBS How is presenting disease/condition affected by chronic disease/condition?: uneffected by Evaluation data The following diagnostics were reviewed and interpreted by me:: lab results and EKG tracing(s) Lab and/or radiology exams considered but not ordered:: none Interpretation Summary: Bedside COVID and Influenza are negative, WBC count is elevated at 12.8, CMP is normal, Lipase is normal, UA is positive for a UTI, according to my interpretation. EKG done at 0335, NSR, rate of 76, normal axis, frequent PVCs, no acute ischemia, according to my interpretation. Medications / Prescriptions Medications or Prescriptions considered but not ordered:: none Medication administrations:: Medication Administration History Discontinued Medications Sodium Chloride (Ns) 1,000 mls @ 999 mls/hr IV .Q1H1M ONE Stop: 03/15/24 03:47 Last Admin: 03/15/24 04:02 Dose: 999 mls/hr Documented By: VIDAL Ondansetron HCl (Ondansetron Inj 2 Mg/Ml Inj 2 Ml) 4 mg IV X1 ONE; Protocol Stop: 03/15/24 02:48 Last Admin: 03/15/24 04:03 Dose: 4 mg Documented By: VIDAL see above Consultations Consultation(s) initiated? (list below): No Diagnosis Differential diagnosis abdominal pain: other (UTI, viral gastroenteritis, STEMI, NSTEMI, electrolyte abnormality) Most likely diagnosis given after review of the tests above:: see below Admission Indicated Admission indicated?: not indicated Admission Request Was there a request for admission?: No Disposition Plan Disposition Plan: Discharge Discharge Attestation Discharge Attestation: The patient and all family members were given an opportunity to ask questions and understood the discharge instructions. Discharge instructions specifically effects, indications for sooner follow up or return to the emergency department, and the expected course of current diagnosis. Patient condition: Stable Discharge Plan Plan Patient Disposition: HOME (Self Care) Disposition Comment: Stable for discharge Patient condition on transfer: Stable Prescriptions/Referrals Prescriptions/Med Rec: New cephalexin 500 mg capsule 500 mg PO BID Qty: 20 0RF ondansetron 4 mg tablet,disintegrating 4 mg PO Q6H PRN (Reason: nausea and vomiting) Qty: 14 0RF No Action levothyroxine 50 mcg Capsule 50 mcg PO QDAY pantoprazole [Protonix] 40 mg tablet,delayed release (DR/EC) 40 mg PO QDAY Qty: 30 0RF furosemide 20 mg tablet 20 mg PO QDAY cephalexin 500 mg capsule 500 mg PO BID Qty: 14 0RF Referrals: Hilario Jesus MD [Primary Care Provider] - In 1 week Problem List Clinical Impression: Vomiting, Diarrhea, Urinary tract infection Patient/Caregiver Discharge Instructions Discharge Activity: activity as tolerated Education Materials: Anatomy of the Female Urinary Tract, Urinary Tract Infections in Women, Self-Care for Vomiting and Diarrhea, ED Diet for Vomiting or ..., ED Vomiting and Diarrhea ... Additional Instructions: Please return to the emergency department if you have any worsening or any further medical problems Otherwise you should follow-up with your primary care doctor within the next several days Print Language: Tunisian Stand Alone Forms: Maame Award Info., Patient Portal Info Letter
[2024-03-15 02:34] VITALS: PULSE 80; RESP 20; O2SAT 99
--- NOTE | 2024-03-15 02:47 | XR_ITS ---
Examination:Right hip AP, lateral, AP pelvis 3 views Technique: Hip AP lateral, AP pelvis, 3 views Exam date and time:March 15, 2024 0251 hrs. Indications: Patient fell today with into the right hip, right hip pain Findings: No definite right hip fracture Mild narrowing hip joints No hip dislocation Left hip bones of the pelvis intact Impression: No definite right hip fracture If pain persists recommend repeat AP pelvis in [address] examination pelvis right hip follow-up.
[2024-03-15 03:26] LABS: Basophils % (Auto) 0 % (0-2.5); Eosinophils # (Auto) 0.1 Thou/mm3 (0.0-0.5); Eosinophils % (Auto) 1 % (0-10); Hematocrit 36.9 % (36.0-46.0); Hemoglobin 12.6 g/dL (12.0-16.0); Immature Granulocytes % (Auto) 0 % (0-0); Immature Granulocytes Auto 0.03 Thou/mm3 (0.00-0.00); Lymphocytes # (Auto) 0.6 Thou/mm3 (1.0-4.8); Lymphocytes % (Auto) 5 % (10-50); Mean Corpuscular HGB Conc 34.1 g/dl (31.0-37.0); Mean Corpuscular Volume 91 fL (80-100); Monocytes # (Auto) 1.1 Thou/mm3 (0.0-0.8); Monocytes % (Auto) 9 % (0-12); Neutrophils # (Auto) 10.9 Thou/mm3 (1.8-7.7); Neutrophils % (Auto) 85 % (37-80); Nucleated Red Blood Cell % 0 /100 WBC (0); Platelet Count 278 Thou/mm3 (140-440); RDW Standard Deviation 41.3 fL (36.4-46.3); Red Blood Count 4.07 Miln/mm3 (4.00-5.20); White Blood Count 12.8 Thou/mm3 (3.6-11.0)
[2024-03-15 03:32] VITALS: BP 131/87; PULSE 84; RESP 18; O2SAT 96
[2024-03-15 03:36] VITALS: PULSE 84
[2024-03-15 03:38] LABS: Alanine Aminotransferase 16 U/L (10-49); Albumin, Serum 4.6 gm/dL (3.4-4.8); Albumin/Globulin Ratio 1.7 (1.2-2.2); Alkaline Phosphatase 71 U/L (46-116); Anion Gap 11 (7-16); Aspartate Amino Transferase 25 U/L (0-34); BUN/Creatinine Ratio 17 Ratio (12-20); Bilirubin,Total 0.3 mg/dL (0.3-1.2); Blood Urea Nitrogen 20 mg/dL (9-23); Calcium 9.9 mg/dL (8.3-10.6); Calcium (Corrected) 9.9 mg/dL (8.5-10.1); Carbon Dioxide 21.3 mMol/L (20.0-31.0); Chloride 109 mMol/L (98-107); Creatinine (Component) 1.2 mg/dL (0.6-1.3); Estimated Creatinine Clearance 26.3 mL/min (>60); Globulin 2.7 gm/dL (2.3-3.5); Glucose 104 mg/dL (74-106); Lipase 46 U/L (12-53); Magnesium 2.1 mg/dL (1.6-2.6); Osmolality,Calculated 283 (275-295); Potassium 3.4 mMol/L (3.4-5.1); Sodium 141 mMol/L (136-145); Total Protein 7.3 gm/dL (5.7-8.2); Troponin I < 0.020 ng/mL (0.0-0.045); eGFR 45 See Note
[2024-03-15 03:41] LABS: Collection Type, Urine Clean Catch
[2024-03-15 04:00] VITALS: BP 133/68; PULSE 86; RESP 16; O2SAT 93
[2024-03-15] MEDS: SODIUM CHLORIDE 0.9% 1000 ML 1,000 ML 999 ML IV (04:02)
[2024-03-15 04:03] LABS: Bilirubin,Urine Negative (Negative); Blood,Urine 1+ (Negative); Clarity,Urine Turbid (Clear/Hazy); Color,Urine Yellow (Lt Yel-Yel); Glucose, Urine Negative (Negative); Hyaline Casts,Urine < 1 /hpf (0-1); Ketones,Urine Trace (Negative); Leukocyte Esterase,Urine Positive (Negative); Nitrite,Urine Positive (Negative); Protein,Urine 1+ (Neg - Trace); RBC,Urine 5 /hpf (0-3); Specific Gravity,Urine 1.021 (1.001-1.035); Squamous Epithelial Cell,Urine < 1 /hpf (0-5); Urobilinogen,Urine Negative mg/dL (0.0-1.0); WBC,Urine 69 /hpf (0-5)
[2024-03-15] MEDS: ONDANSETRON INJ 2 MG/ML INJ 2 ML 4 MG IV (04:03)
[2024-03-15 04:04] LABS: Culture Indicated,Urine Yes
== END 2024-03-15 04:40 | disposition home or self-care (01) ==
PROVIDERS: Emergency Provider Emergency Medicine; PCP Family Medicine
DX: N39.0 Urinary tract infection, site not specified (principal); M25.551 Pain in right hip; I49.3 Ventricular premature depolarization; I10 Essential (primary) hypertension; E78.5 Hyperlipidemia, unspecified; K58.9 Irritable bowel syndrome, unspecified; F03.90 Unspecified dementia, unspecified severity, without behavioral disturbance, psychotic disturbance, mood disturbance, and anxiety
CPT/HCPCS: 51701; 36415; 73502; 80053; 81001; 83690; 83735; 84484; 85025; 87077; 87086; 87186; 87400; 87811; 93005; 96361; 96374; 99284; J2405; J7030

== ENCOUNTER → 2024-03-26 | Outpatient (CLI) | payer OTHER, MEDICAID, SELFPAY | END | disposition home or self-care (01) | PROVIDERS: PCP Family Medicine; Referring Provider Family Medicine; Visit Provider Student in an Organized Health Care Education/Training Program | DX: L97.822 Non-pressure chronic ulcer of other part of left lower leg with fat layer exposed (principal); S81.802A Unspecified open wound, left lower leg, initial encounter; X58.XXXA Exposure to other specified factors, initial encounter; E11.69 Type 2 diabetes mellitus with other specified complication; E03.9 Hypothyroidism, unspecified; L85.3 Xerosis cutis; F03.90 Unspecified dementia, unspecified severity, without behavioral disturbance, psychotic disturbance, mood disturbance, and anxiety; R60.0 Localized edema | CPT/HCPCS: 99212; G0463 ==

== ENCOUNTER → 2024-04-08 | Outpatient (CLI) | payer OTHER, MEDICAID, SELFPAY ==
[2024-04-08 10:26] LABS: Basophils % (Auto) 1 % (0-2.5); Eosinophils # (Auto) 0.1 Thou/mm3 (0.0-0.5); Eosinophils % (Auto) 2 % (0-10); Hematocrit 37.7 % (36.0-46.0); Hemoglobin 12.1 g/dL (12.0-16.0); Immature Granulocytes % (Auto) 0 % (0-0); Immature Granulocytes Auto 0.01 Thou/mm3 (0.00-0.00); Lymphocytes # (Auto) 1.8 Thou/mm3 (1.0-4.8); Lymphocytes % (Auto) 32 % (10-50); Mean Corpuscular HGB Conc 32.1 g/dl (31.0-37.0); Mean Corpuscular Hemoglobin 30.5 pg (25.0-35.0); Mean Corpuscular Volume 95 fL (80-100); Monocytes # (Auto) 0.5 Thou/mm3 (0.0-0.8); Monocytes % (Auto) 9 % (0-12); Neutrophils # (Auto) 3.2 Thou/mm3 (1.8-7.7); Neutrophils % (Auto) 57 % (37-80); Nucleated Red Blood Cell % 0 /100 WBC (0); Platelet Count 278 Thou/mm3 (140-440); RDW Standard Deviation 43.2 fL (36.4-46.3); Red Blood Count 3.97 Miln/mm3 (4.00-5.20); White Blood Count 5.7 Thou/mm3 (3.6-11.0)
[2024-04-08 10:56] LABS: Alanine Aminotransferase 11 U/L (10-49); Albumin, Serum 4.7 gm/dL (3.4-4.8); Alkaline Phosphatase 68 U/L (46-116); Anion Gap 9 (7-16); Aspartate Amino Transferase 22 U/L (0-34); BUN/Creatinine Ratio 26 Ratio (12-20); Bilirubin,Total 0.3 mg/dL (0.3-1.2); Blood Urea Nitrogen 23 mg/dL (9-23); Calcium 9.9 mg/dL (8.3-10.6); Calcium (Corrected) 9.9 mg/dL (8.5-10.1); Chloride 111 mMol/L (98-107); Creatinine (Component) 0.9 mg/dL (0.6-1.3); Globulin 2.3 gm/dL (2.3-3.5); Glucose 100 mg/dL (74-106); Osmolality,Calculated 292 (275-295); Potassium 4.1 mMol/L (3.4-5.1); Sodium 145 mMol/L (136-145); eGFR > 60 See Note
== END | disposition home or self-care (01) ==
LOC: COPL 09:28
PROVIDERS: PCP Family Medicine; Referring Provider Internal Medicine Nephrology; Visit Provider Internal Medicine Nephrology
DX: I12.9 Hypertensive chronic kidney disease with stage 1 through stage 4 chronic kidney disease, or unspecified chronic kidney disease (principal); D63.1 Anemia in chronic kidney disease; N18.9 Chronic kidney disease, unspecified
CPT/HCPCS: 36415; 80053; 85025

== ENCOUNTER 2024-04-13 14:42 | Emergency (ER) | payer OTHER, MEDICAID, SELFPAY ==
--- NOTE | 2024-04-13 14:46 | XR_ITS ---
Examination: AP chest single view Technique one AP portable upright chest single view Exam date and time: April 13, 2024 1523 hrs. Indications: Hypertension today Findings: No significant cardiac enlargement No pneumonia or pulmonary edema Prominent osteopenia Impression: No pneumonia or pulmonary edema
--- NOTE | 2024-04-13 14:46 | EKG_ITS ---
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
--- NOTE | 2024-04-13 14:47 | XR_ITS ---
Examination:Left hip AP, lateral, AP pelvis 3 views Technique: Hip AP lateral, AP pelvis, 3 views Exam date and time:April 13, 2024 1523 hrs. Indications: Injury to the head today, left hip pain Findings: Prominent osteopenia No acute hip fracture Incomplete study, no lateral view Impression: Limited study No acute hip or pelvic fracture.
--- NOTE | 2024-04-13 14:49 | EDNOTE_ITS ---
ED General RME/HPI General Chief complaint: Hip Injury/Pain Stated complaint: WEAKNESS Time Seen by Provider: 04/13/24 14:46 Arrival date/time: 04/13/24 14:42 RME / HPI RME / HPI narrative: 83-year-old female patient was sent to us from the clinic for evaluation regarding hypotension. Apparently patient was in the clinic today and felt dizzy, and blood pressure was noted to the low 70s. Patient has been taking [place] 10 mg every 6 hours for the left hip pain. Patient denies any headache denies any chest pain denies any fever denies any vomiting denies any diarrhea. When the EMS arrived, patient blood pressure was noted to be above 120 systolic according to EMS. No medication was taken prior to arrival. Related Data Home Medications ?Medication ?Instructions ?Recorded ?Confirmed levothyroxine 50 mcg capsule 50 mcg PO QDAY 04/20/21 0 10/18/23 furosemide 20 mg tablet 20 mg PO QDAY 05/19/2310/17 Previous Rx's ?Medication ?Instructions ?Recorded pantoprazole 40 mg tablet,delayed 40 mg PO QDAY #30 ta bs 10/15/21 release (Protonix) cephalexin 500 mg capsule 500 mg PO BID #14 caps 10/17 cephalexin 500 mg capsule 500 mg PO BID Urinary tract 03/15/24 infection #20 caps ondansetron 4 mg disintegrating 4 mg PO Q6H PRN nausea and 03/15/24 tablet vomiting #14 tabs Allergies Allergy/AdvReac Type Severity Reaction Status Date / Time No Known Allergies Allergy Verified 05/19/23 11:43 Review of Systems Review of Systems Narrative Review of Systems: Review of system reviewed and within normal limits except mentioned in HPI ED Exam Narrative Physical exam: VITAL SIGNS: Reviewed. GENERAL APPEARANCE: Alert and interactive, follows commands, no acute distress, HEAD AND FACE: Non-traumatic. ENT: PERRL, pink conjunctivitis, eyelid no trauma, Mucous membrane moist. NECK: Supple, nontender, no nuchal rigidity. CHEST: No tenderness, no crepitus, no paradoxical movement, no retractions. LUNGS: Clear, well ventilated, symmetric, no rales, no wheezing, no ronchi, no stridor, good breath sounds bilaterally. HEART: Regular rate, regular rhythm, no murmur, no gallops. ABDOMEN: Soft, positive bowel sounds, nondistended, no guarding, nontender, no rebound, no masses, RECTAL: Deferred. GENITAL: Deferred. NEUROLOGICAL: Gross motor function intact sensory function intact, Appropriate for age. MUSCULOSKELETAL: low back nontender, full range of motion. EXTREMITIES: Nontender, full range of motion. SKIN: Color pink, dry, no rash, no lacerations, no abrasions, no contusions. LYMPHATICS: Deferred. Course Quality Measures none Orders Category Date Time Status EKG (ED ONLY) *Do not use* NOW Care 04/13/24 14:[address] pelvis wo con Stat Exams 04/13/24 15:58 Completed EKG (ED Only) Stat Exams 04/13/24 14:46 Draft XR chest 1V Stat Exams 04/13/24 14:46 Taken XR hip LT w pelvis 2-3V Stat Exams 04/13/24 14:47 Taken B-Type Natriuretic Peptide Stat Lab 04/13/24 15:40 Completed CBC Stat Lab 04/13/24 15:40 Completed Comprehensive Metabolic Panel Stat Lab 04/13/24 15:40 Completed Partial Thromboplastin Time Stat Lab 04/13/24 15:40 Completed Troponin I Stat Lab 04/13/24 15:40 Completed Urinalysis, C/S if Indicated Stat Lab 04/13/24 14:46 Ordered Morphine Inj Med 04/13/24 15:10 Discontinued 4 mg IVP X1 ONE Ondansetron Inj [Zofran Inj] Med 04/13/24 15:10 Discontinued 4 mg IV X1 ONE Sodium Chloride 0.9% 1000 ml [Ns] 1,000 ml Med 04/13/24 14:47 Discontinued IV 999 mls/hr Vital Signs Vital signs: Vital Signs Temperature 98.0 F 04/13/24 15:04 Pulse Rate 99 04/13/24 15:04 Respiratory Rate 16 04/13/24 15:04 Blood Pressure 157/84 H 04/13/24 15:04 Pulse Oximetry (%) 99 04/13/24 15:04 Oxygen Delivery Method Room Air 04/13/24 15:04 [facility] Patient data External records reviewed:: None Clinical information provided by:: none Social determinants that could affect healthcare access:: none Patient has the following chronic illnesses:: Chronic hip pain hypothyroidism, How is presenting disease/condition affected by chronic disease/condition?: e xacerbated by Evaluation data The following diagnostics were reviewed and interpreted by me:: lab results and radiology exam(s) Lab and/or radiology exams considered but not ordered:: None Interpretation Summary: See results in MDM Medications Medications considered but not ordered:: None Medication administrations:: Medication Administration History Discontinued Medications Sodium Chloride (Ns) 1,000 mls @ 999 mls/hr IV .Q1H1M ONE Stop: 04/13/24 15:47 Last Infusion: 04/13/24 17:52 Dose: Infused Documented By: Admin: 04/13/24 15:29 Dose: 999 mls/hr Documented By: BD Morphine Sulfate (Morphine Sulf Inj 10 Mg/Ml Vial) 4 mg IVP X1 ONE Stop: 04/13/24 15:11 Last Admin: 04/13/24 15:28 Dose: 4 mg Documented By: BD Ondansetron HCl (Ondansetron Inj 2 Mg/Ml Inj 2 Ml) 4 mg IV X1 ONE; Protocol Stop: 04/13/24 15:11 Last Admin: 04/13/24 15:28 Dose: 4 mg Documented By: BD Morphine Zofran and IV fluids Consultations Consultation(s) initiated? (list below): No Diagnosis Differential Diagnosis ED Complaint MDM: Hypotension, dehydration, side effect from [place] Most likely diagnosis given after review of the tests above:: Chronic hip pain, hypertension Admission Indicated Admission indicated?: not indicated Explain why admission is indicated or not indicated:: Stable Admission Request Was there a request for admission?: No Disposition Plan Disposition Plan: Discharge Discharge Attestation Discharge Attestation: The patient and all family members were given an opportunity to ask questions and understood the discharge instructions. Discharge instructions specifically effects, indications for sooner follow up or return to the emergency department, and the expected course of current diagnosis. Patient condition: Stable Medical Decision Making MDM Narrative MDM Narrative: 83-year-old female patient was sent to us from the clinic for evaluation regarding hypotension. Apparently patient was in the clinic today and felt dizzy, and blood pressure was noted to the low 70s. Patient has been taking [place] 10 mg every 6 hours for the left hip pain. Patient denies any headache denies any chest pain denies any fever denies any vomiting denies any diarrhea. When the EMS arrived, patient blood pressure was noted to be above 120 systolic according to EMS. No medication was taken prior to arrival. Patient received IV fluids for hydration, workup today all came back normal including CT scan of the pelvis which did not show any fracture except for narrowing of the hip joint bilateral. Results discussed with the patient and family. Patient was given morphine with significant improvement of pain. Patient stable for discharge home. EKG showed normal sinus rhythm, ventricular rate of 82 bpm, no ST segment elevation depression noted. Differential Diagnosis Differential Diagnosis: Hypotension, dehydration, side effect from [place] Lab Data 04/13/24 15:40 04/13/24 15:40 Labs: Lab Results 04/13/24 Range/Units 15:40 WBC 7.3 (3.6-11.0) Thou/mm3 RBC 3.93 L (4.00-5.20) Miln/mm3 Hgb 12.2 (12.0-16.0) g/dL Hct 35.2 L (36.0-46.0) % MCV 90 (80-100) fL MCH 31.0 (25.0-35.0) pg MCHC 34.7 (31.0-37.0) g/dl RDW Std Deviation 40.5 (36.4-46.3) fL Plt Count 234 D (140-440) Thou/mm3 Neut % (Auto) 60 (37-80) % Lymph % (Auto) 29 (10-50) % [place] % (Auto) 8 (0-12) % Eos % (Auto) 2 (0-10) % Baso % (Auto) 0 (0-2.5) % Neut # (Auto) 4.4 (1.8-7.7) Thou/mm3 Lymph # (Auto) 2.2 (1.0-4.8) Thou/mm3 [place] # (Auto) 0.6 (0.0-0.8) Thou/mm3 Eos # (Auto) 0.1 (0.0-0.5) Thou/mm3 Baso # (Auto) 0.0 (0.0-0.2) Thou/mm3 Immature Gran # (Auto) 0.02 H (0.00-0.00) Thou/mm3 Absolute Nucleated RBC 0.00 (0.00-0.00) Thou/mm3 Immature Gran % 0 (0-0) % Nucleated RBC % 0 (0) /100 WBC APTT 26.8 (22.0-36.0) Seconds Sodium 141 (136-145) mMol/L Potassium 4.0 (3.4-5.1) mMol/L Chloride 114 H (98-107) mMol/L Carbon Dioxide 16.9 L (20.0-31.0) mMol/L Anion Gap 10 (7-16) BUN 26 H (9-23) mg/dL Creatinine 1.1 (0.6-1.3) mg/dL Estim Creat Clear Calc 30.1 L (>60) mL/min eGFR 50 L (60 - ) See Note BUN/Creatinine Ratio 24 H (12-20) Ratio Glucose 86 (74-106) mg/dL Calculated Osmolality 284 (275-295) Calcium 9.4 (8.3-10.6) mg/dL Corrected Calcium 9.4 (8.5-10.1) mg/dL Total Bilirubin 0.5 (0.3-1.2) mg/dL AST 23 (0-34) U/L ALT 11 (10-49) U/L Alkaline Phosphatase 51 (46-116) U/L Troponin I < 0.020 (0.0-0.045) ng/mL B-Natriuretic Peptide 55 (0-100) pg/mL Total Protein 6.7 (5.7-8.2) gm/dL Albumin 4.1 (3.4-4.8) gm/dL Globulin 2.6 (2.3-3.5) gm/dL Albumin/Globulin Ratio 1.6 (1.2-2.2) Discharge Plan Plan Patient Disposition: HOME (Self Care) Disposition Comment: Stable Prescriptions/Referrals Prescriptions/Med Rec: No Action levothyroxine 50 mcg Capsule 50 mcg PO QDAY pantoprazole [Protonix] 40 mg tablet,delayed release (DR/EC) 40 mg PO QDAY Qty: 30 0RF cephalexin 500 mg capsule 500 mg PO BID Qty: 20 0RF ondansetron 4 mg tablet,disintegrating 4 mg PO Q6H PRN (Reason: nausea and vomiting) Qty: 14 0RF furosemide 20 mg tablet 20 mg PO QDAY cephalexin 500 mg capsule 500 mg PO BID Qty: 14 0RF Referrals: Hilario Jesus MD [Primary Care Provider] - In 1 week Problem List Clinical Impression: Chronic hip pain, Hypotension Patient/Caregiver Discharge Instructions Discharge Activity: activity as tolerated Education Materials: ED Chronic Pain Additional Instructions: Thank you for the opportunity for serving you today. You are stable for discharged . You are advised to: Follow-up with your PCP in 1 to 2 days Return to ED for worsening of symptoms Increase oral fluids Take your own pain medication as needed for pain Print Language: Sami Stand Alone Forms: Maame Award Info., Patient Portal Info Letter PA/RYDER Supervising Physician PA/RYDER Supervising Physician: MD Jody
[2024-04-13 14:55] VITALS: PULSE 78; RESP 18; O2SAT 95; BMI 23.8
[2024-04-13 15:04] VITALS: BP 157/84; PULSE 99; RESP 16; TEMP 36.7; O2SAT 99
[2024-04-13] MEDS: MORPHINE SULF INJ 10 MG/ML VIAL 4 MG IVP (15:28)
[2024-04-13] MEDS: ONDANSETRON INJ 2 MG/ML INJ 2 ML 4 MG IV (15:28)
[2024-04-13] MEDS: SODIUM CHLORIDE 0.9% 1000 ML 1,000 ML 999 ML IV (15:29)
[2024-04-13 15:58] LABS: Basophils % (Auto) 0 % (0-2.5); Eosinophils # (Auto) 0.1 Thou/mm3 (0.0-0.5); Eosinophils % (Auto) 2 % (0-10); Hematocrit 35.2 % (36.0-46.0); Hemoglobin 12.2 g/dL (12.0-16.0); Immature Granulocytes % (Auto) 0 % (0-0); Immature Granulocytes Auto 0.02 Thou/mm3 (0.00-0.00); Lymphocytes # (Auto) 2.2 Thou/mm3 (1.0-4.8); Lymphocytes % (Auto) 29 % (10-50); Mean Corpuscular HGB Conc 34.7 g/dl (31.0-37.0); Mean Corpuscular Volume 90 fL (80-100); Monocytes # (Auto) 0.6 Thou/mm3 (0.0-0.8); Monocytes % (Auto) 8 % (0-12); Neutrophils # (Auto) 4.4 Thou/mm3 (1.8-7.7); Neutrophils % (Auto) 60 % (37-80); Nucleated Red Blood Cell % 0 /100 WBC (0); Platelet Count 234 Thou/mm3 (140-440); RDW Standard Deviation 40.5 fL (36.4-46.3); Red Blood Count 3.93 Miln/mm3 (4.00-5.20); White Blood Count 7.3 Thou/mm3 (3.6-11.0)
--- NOTE | 2024-04-13 15:58 | XR_ITS ---
Examination: CT pelvis without intravenous contrast. 2-D sagittal and coronal reconstructions. Date and time of exam:April 13, 2024 1658 hrs. Indications: Bilateral hip pain beginning 4 days ago CTDI: vol (mGy) :4.96 DLP: (mGycm) : 157 Technique: Multiple 3 mm axial sections of the pelvis have been obtained with the 64 slice high resolution scanner. 2-D sagittal and coronal reconstructions. Low dose protocols were performed. One or more of the following dose reduction techniques were used; automated exposure control, adjustment of the mA and/or KV according to patient size, use of iterative reconstruction technique. Findings: Significant osteopenia No hip fracture or hip dislocation Bones of the pelvis intact Mild narrowing hip joints No avascular necrosis Impression: Mild bilateral narrowing hip joints
[2024-04-13 16:14] LABS: B-Type Natriuretic Peptide 55 pg/mL (0-100)
[2024-04-13 16:17] LABS: Alanine Aminotransferase 11 U/L (10-49); Albumin, Serum 4.1 gm/dL (3.4-4.8); Albumin/Globulin Ratio 1.6 (1.2-2.2); Alkaline Phosphatase 51 U/L (46-116); Anion Gap 10 (7-16); Aspartate Amino Transferase 23 U/L (0-34); BUN/Creatinine Ratio 24 Ratio (12-20); Bilirubin,Total 0.5 mg/dL (0.3-1.2); Blood Urea Nitrogen 26 mg/dL (9-23); Calcium 9.4 mg/dL (8.3-10.6); Calcium (Corrected) 9.4 mg/dL (8.5-10.1); Carbon Dioxide 16.9 mMol/L (20.0-31.0); Chloride 114 mMol/L (98-107); Creatinine (Component) 1.1 mg/dL (0.6-1.3); Estimated Creatinine Clearance 30.1 mL/min (>60); Globulin 2.6 gm/dL (2.3-3.5); Glucose 86 mg/dL (74-106); Osmolality,Calculated 284 (275-295); Sodium 141 mMol/L (136-145); Total Protein 6.7 gm/dL (5.7-8.2); Troponin I < 0.020 ng/mL (0.0-0.045); eGFR 50 See Note
[2024-04-13 16:21] LABS: Partial Thromboplastin Time 26.8 Seconds (22.0-36.0)
[2024-04-13 16:37] VITALS: BP 142/96; PULSE 88; RESP 20; TEMP 36.7; O2SAT 100
--- NOTE | 2024-04-13 17:58 | PRELIM_ITS ---
CT scan of the pelvis without intravenous contrast. Axial sections with sagittal and coronal reformats were obtained April 13, 2024 at 1658 hours Clinical History: Hip pain Comparison: Correlated with prior radiograph study performed earlier today. Findings: The bones are osteopenic. There is no fracture or malalignment. Bilateral hip joints are grossly unremarkable. No joint effusion is seen. There are multiple colonic diverticula without evidence of diverticulitis. The visualized pelvic viscera and soft tissues are otherwise unremarkable. Degenerative changes are identified in the spine. Impression: No significant osseous or articular abnormality. Other findings as described above. Report Electronically Signed By: Sahil Beal 04/13/2024 5:58:07 PM [EST]
[2024-04-13 18:06] VITALS: BP 118/66; PULSE 90; RESP 18; TEMP 36.8; O2SAT 97
== END 2024-04-13 20:45 | disposition home or self-care (01) ==
PROVIDERS: Nurse Practitioner Family; Emergency Provider Emergency Medicine; PCP Family Medicine
DX: I95.9 Hypotension, unspecified (principal); M25.552 Pain in left hip; G89.29 Other chronic pain; E03.9 Hypothyroidism, unspecified
CPT/HCPCS: 36415; 71045; 72192; 73502; 80053; 81001; 83880; 84484; 85025; 85730; 93005; 96361; 96374; 96375; 99284; J2270; J2405; J7030

== ENCOUNTER → 2024-04-15 | Outpatient (CLI) | payer OTHER, MEDICAID, SELFPAY ==
--- NOTE | 2024-04-15 10:36 | XR_ITS ---
Examination: Venous duplex lower extremity sonogram, bilateral. Date and time of exam: April 15, 2024 1115 hrs. Indications: Left leg, beginning 3 months ago Technique: Multiple sonographic images of the deep venous system have been obtained. B-mode/2-D grayscale imaging of vascular structures and Doppler spectral analysis (waveforms) and color performed Both legs are examined. Findings: Deep venous systems do not demonstrate abnormal echogenicity. All visualized deep veins exhibit compressibility. All visualized deep veins exhibit augmentation. Impression: Negative for deep vein thrombosis
== END | disposition home or self-care (01) ==
PROVIDERS: PCP Nurse Practitioner Family; Referring Provider Internal Medicine; Visit Provider Internal Medicine
DX: M79.673 Pain in unspecified foot (principal)
CPT/HCPCS: 93970

== ENCOUNTER 2024-04-17 01:46 | Emergency (ER) | payer OTHER, MEDICAID, SELFPAY ==
[2024-04-17 01:49] VITALS: PULSE 91; RESP 18; O2SAT 97
--- NOTE | 2024-04-17 01:54 | XR_ITS ---
Examination: CT chest, without intravenous contrast. CT abdomen, without intravenous contrast. CT pelvis, without intravenous contrast. 2-D sagittal and coronal reconstructions. 3-D reconstructions. Date and time of exam:April 17, 2024 0341 hrs. Indications: Patient fell today with injury to the chest, chest pain abdomen pain CTDI vol (mgy) 6.27 DLP (MGycm)394 Technique: Multiple CT images, 3.0 mm slice thickness, obtained chest, abdomen, pelvis, with the high-resolution 64 slice scanner.. Sagittal and coronal 2-D reconstructions are obtained. 3-D reconstructions Low dose protocols were performed. One or more of the following dose reduction techniques were used; automated exposure control, adjustment of the mA and/or KV according to patient size, use of iterative reconstruction technique. Findings: Thoracic aorta pulmonary arteries intact No hemopericardium No pneumothorax pulmonary contusion or hemothorax No abdominal parenchymal laceration 3 mm left renal calculus Abdominal aorta intact No free blood in the abdomen or pelvis Distended urinary bladder Patient motion degrades osseous image quality No gross fractures Impression: Thoracic aorta pulmonary arteries intact Hemopericardium pneumothorax pulmonary contusion or hemothorax No abdominal parenchymal laceration Aorta intact No free blood in the abdomen 3 mm left renal calculus
--- NOTE | 2024-04-17 01:54 | XR_ITS ---
Examination: CT brain head without contrast. 2-D sagittal coronal reconstructions Date and time of exam: April 17, 2024 at 0335 hrs. Indications: Patient fell today with injury to the head, head pain CTDI: vol (mGy):44.6 DLP: (mGycm):820 Technique: Multiple CT axial sections of the brain have been obtained, 5 mm slice thickness. Contrast has not been administered. 2-D sagittal, coronal reconstructions have been obtained Low dose protocols were performed. One or more of the following dose reduction techniques were used; automated exposure control, adjustment of the mA and/or KV according to patient size, use of iterative reconstruction technique. Findings: No significant ventricular enlargement. Intra-axial or extra-axial hemorrhage density is not seen. No mass effect or midline shift Basal cisterns are not remarkable. Fourth ventricle is midline. Cranial vault intact. Impression: Negative for acute hemorrhage, mass effect or midline shift
--- NOTE | 2024-04-17 01:54 | XR_ITS ---
Examination: CT cervical spine without contrast 2-D sagittal reconstructions 2-D coronal reconstructions 3-D reconstructions. Exam date and time:April 17, 2024 0359 hrs. Indications: Patient fell today with injury to the neck, neck pain CTDI:vol (mGy) 7.11 DLP: (mGycm) 8 Technique: Multiple 2 mm axial sections of the cervical spine have been obtained. The coronal and sagittal reconstructions have been obtained. 3-D reconstructions have been obtained. Low dose protocols were performed. One or more of the following dose reduction techniques were used; automated exposure control, adjustment of the mA and/or KV according to patient size, use of iterative reconstruction technique. Findings: Axial sections demonstrate intact base of the skull. C1 exhibit satisfactory relationship to the odontoid. No acute cervical vertebral body fracture seen. Alignment posterior spinous processes satisfactory. Impression: No acute cervical fracture.
--- NOTE | 2024-04-17 01:58 | EKG_ITS ---
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
--- NOTE | 2024-04-17 01:58 | PD.EDADULT ---
ED General RME/HPI General Chief complaint: Fall Stated complaint: FALL Arrival date/time: 04/17/24 01:46 RME / HPI RME / HPI narrative: Patient is a 83 years old female with PMH of dementia, HTN, HLD, arthritis presented to the ED after ground level fall. She reports she was walking to the bathroom when she lost a balance and sustained ground level fall. She injured her head. She also reports pain in bilateral hips, right chest and shoulder. She reports her balance is always poor and she had multiple near falls recently. She denies LOC, seizures, dizziness, headache, syncope, changes in vision or hearing. Related Data Home Medications ?Medication ?Instructions ?Recorded ?Confirmed levothyroxine 50 mcg capsule 50 mcg PO QDAY 04/20/21 10/18/23 furosemide 20 mg tablet 20 mg PO QDAY 05/19/23 10/18/23 Previous Rx's ?Medication ?Instructions ?Recorded pantoprazole 40 mg tablet,delayed 40 mg PO QDAY #30 tabs 10/15/21 release (Protonix) cephalexin 500 mg capsule 500 mg PO BID #14 caps 10/18/23 cephalexin 500 mg capsule 500 mg PO BID Urinary tract 03/15/24 infection #20 caps ondansetron 4 mg disintegrating 4 mg PO Q6H PRN nausea and 03/15/24 tablet vomiting #14 tabs Allergies Allergy/AdvReac Type Severity Reaction Status Date / Time No Known Allergies Allergy Verified 05/19/23 11:43 Review of Systems Review of Systems Systems Reviewed: All systems reviewed, normal except as documented ED Exam Narrative Physical exam: Gen: Well-developed and well-nourished elderly female in cervical collar. HEENT: NCAT, PERRLA, EOMI, MMM, anicteric conjunctivae. 1 cm laceration next to her right eye with dry blood. Nose bruise noted. CVS: normal S1 and S2. RRR. No M/R/G. Resp: CTA B/L. No rhonchi, rales, crackles or wheezing. Abd: soft, non-tender, non-distended. BS+ in all 4 quadrants. MSK: No edema or rash. Hand and feet deformity due to arthritis. B/L hips, right chest and shoulder are tender to palpation. Neuro: CN II-XII grossly intact. Alert and oriented x1. Course Quality Measures none Orders Category Date Time Status Logging Operations Inspector Q4H START 00 Care 04/17/24 01:57 Active Continuous Pulse Oximetry NOW Care 04/17/24 01:57 Completed EKG (ED ONLY) *Do not use* NOW Care 04/17/24 01:58 Completed In and Out Catheter X1 Care 04/17/24 04:19 Active Nurse Swallow Screen X1 Care 04/17/24 01:55 Completed Rigid cervical collar PRN Care 04/17/24 01:[address] cervical spine wo con Stat Exams 04/17/24 01:[address] chest abdomen pelvis wo Stat Exams 04/17/24 01:[address] head/brain wo con Stat Exams 04/17/24 01:54 Taken EKG (ED Only) Stat Exams 04/17/24 01:58 Ordered CBC Stat Lab 04/17/24 02:28 Completed CMP [Comprehensive Metabolic Panel] Stat Lab 04/17/24 02:28 Completed Drug Screen,Urine Stat Lab 04/17/24 02:25 Completed Lactate (Lactic Acid) Stat Lab 04/17/24 02:28 Completed Magnesium Stat Lab 04/17/24 02:28 Completed Phosphorous Stat Lab 04/17/24 02:28 Completed Troponin I Stat Lab 04/17/24 02:28 Completed Urinalysis Stat Lab 04/17/24 02:25 Completed Magnesium Sulfate 1 gm Ivpb [Magnesium Sulfate Ivpb] Med 04/17/24 04:05 Discontinued 1 gm in 100 ml IV X1 Morphine Inj Med 04/17/24 01:56 Discontinued 2 mg IVP X1 ONE Ondansetron Inj [Zofran Inj] Med 04/17/24 01:57 Active 4 mg IV Q6HR PRN Vital Signs Vital signs: Vital Signs Temperature 97.4 F 04/17/24 02:12 Pulse Rate 92 04/17/24 02:12 Respiratory Rate 15 04/17/24 02:12 Blood Pressure 168/94 H 04/17/24 02:12 Pulse Oximetry (%) 99 04/17/24 02:12 Oxygen Delivery Method Room Air 04/17/24 02:12 Procedures -ED EKG Interpretation #1: Date of EK04/17/24 Time of EK:16 Rate: 89 Interpretation: Reviewed by me EKG Impression: Normal sinus rhythm MDM Patient data External records reviewed:: [facility] previous records and EMS form Clinical information provided by:: patient and EMS Social determinants that could affect healthcare access:: none Patient has the following chronic illnesses:: dementia, HTN, HLD, arthritis How is presenting disease/condition affected by chronic disease/condition?: exacerbated by Evaluation data The following diagnostics were reviewed and interpreted by me:: lab results, radiology exam(s) and EKG tracing(s) Lab and/or radiology exams considered but not ordered:: na Interpretation Summary: no acute fractures Medications Medications considered but not ordered:: na Medication administrations:: Medication Administration History Ondansetron HCl (Ondansetron Inj 2 Mg/Ml Inj 2 Ml) 4 mg IV Q6HR PRN; Protocol PRN Reason: NAUSEA OR VOMITING Stop: 05/17/24 01:56 Last Admin: 04/17/24 02:37 Dose: 4 mg Documented By: GRISELDA Discontinued Medications Magnesium Sulfate/Dextrose (Magnesium Sulfate Ivpb) 1 gm in 100 mls @ 100 mls/hr IV X1 ONE Stop: 04/17/24 05:04 Last Admin: 04/17/24 04:48 Dose: 100 mls/hr Documented By: GRISELDA Morphine Sulfate (Morphine Sulf Inj 10 Mg/Ml Vial) 2 mg IVP X1 ONE Stop: 04/17/24 01:57 Last Admin: 04/17/24 02:37 Dose: 2 mg Documented By: GRISELDA as above Consultations Consultation(s) initiated? (list below): No Diagnosis Differential Diagnosis ED Complaint MDM: hip fracture, pelvic fracture, rib fracture, shoulder fracture Most likely diagnosis given after review of the tests above:: no acute fracture s/p ground level fall Admission Indicated Admission indicated?: not indicated Explain why admission is indicated or not indicated:: negative for acute findings Admission Request Was there a request for admission?: No Disposition Plan Disposition Plan: Discharge Discharge Attestation Discharge Attestation: The patient and all family members were given an opportunity to ask questions and understood the discharge instructions. Discharge instructions specifically effects, indications for sooner follow up or return to the emergency department, and the expected course of current diagnosis. Patient condition: Stable Medical Decision Making Differential Diagnosis Differential Diagnosis: hip fracture, pelvic fracture, rib fracture, shoulder fracture Lab Data 04/17/24 02:28 04/17/24 02:28 Labs: Lab Results 04/17/24 04/17/24 Range/Units 02: 02:28 WBC 6.7 (3.6-11.0) Thou/mm3 RBC 4.09 (4.00-5.20) Miln/mm3 Hgb 12.7 (12.0-16.0) g/dL Hct 36.6 (36.0-46.0) % MCV 90 (80-100) fL MCH 31.1 (25.0-35.0) pg MCHC 34.7 (31.0-37.0) g/dl RDW Std Deviation 41.1 (36.4-46.3) fL Plt Count 237 (140-440) Thou/mm3 Neut % (Auto) 61 (37-80) % Lymph % (Auto) 28 (10-50) % [place] % (Auto) 9 (0-12) % Eos % (Auto) 2 (0-10) % Baso % (Auto) 0 (0-2.5) % Neut # (Auto) 4.1 (1.8-7.7) Thou/mm3 Lymph # (Auto) 1.8 (1.0-4.8) Thou/mm3 [place] # (Auto) 0.6 (0.0-0.8) Thou/mm3 Eos # (Auto) 0.2 (0.0-0.5) Thou/mm3 Baso # (Auto) 0.0 (0.0-0.2) Thou/mm3 Immature Gran # (Auto) 0.01 H (0.00-0.00) Thou/mm3 Absolute Nucleated RBC 0.00 (0.00-0.00) Thou/mm3 Immature Gran % 0 (0-0) % Nucleated RBC % 0 (0) /100 WBC Sodium 144 (136-145) mMol/L Potassium 3.6 (3.4-5.1) mMol/L Chloride 113 H (98-107) mMol/L Carbon Dioxide 20.2 (20.0-31.0) mMol/L Anion Gap 11 (7-16) BUN 13 (9-23) mg/dL Creatinine 0.8 (0.6-1.3) mg/dL Estim Creat Clear Calc 41.4 L (>60) mL/min eGFR > 60 (60 - ) See Note BUN/Creatinine Ratio 16 (12-20) Ratio Glucose 95 (74-106) mg/dL Calculated Osmolality 286 (275-295) Lactic Acid 1.5 (0.4-2.0) mMol/L Calcium 10.1 (8.3-10.6) mg/dL Corrected Calcium 10.1 (8.5-10.1) mg/dL Phosphorus 2.6 (2.4-5.1) mg/dL Magnesium 1.9 (1.6-2.6) mg/dL Total Bilirubin 0.5 (0.3-1.2) mg/dL AST 35 H (0-34) U/L ALT 22 (10-49) U/L Alkaline Phosphatase 60 (46-116) U/L Troponin I < 0.020 (0.0-0.045) ng/mL Total Protein 7.1 (5.7-8.2) gm/dL Albumin 4.4 (3.4-4.8) gm/dL Globulin 2.7 (2.3-3.5) gm/dL Albumin/Globulin Ratio 1.6 (1.2-2.2) Ur Collection Type Clean Catch Urine Color Lt-Yellow (Lt Yel-Yel) Urine Clarity Clear (Clear/Hazy) Urine pH 6.5 (5.0-7.0) Ur Specific [place] 1.015 (1.001-1.035) Urine Protein Negative (Neg - Trace) Urine Glucose (UA) Negative (Negative) Urine Ketones Negative (Negative) Urine Blood Trace (Negative) Urine Nitrite Negative (Negative) Urine Bilirubin Negative (Negative) Urine Urobilinogen (Auto) Negative (0.0-1.0) mg/dL Ur Leukocyte Esterase Negative (Negative) Urine RBC 2 (0-3) /hpf Urine WBC 3 (0-5) /hpf Ur Squamous Epith Cells 0 (0-5) /hpf Urine Bacteria None (None) Urine Opiates Screen Negative (Negative) Urine Fentanyl Screen Negative (Negative) Ur Barbiturates Screen Negative (Negative) U Amphetamin/Meth Scrn Negative (Negative) U Benzodiazepines Scrn Negative (Negative) U Cocaine Metab Screen Negative (Negative) U Marijuana (THC) Screen Negative (Negative) Discharge Plan Plan Patient Disposition: HOME (Self Care) Patient condition on transfer: Stable Prescriptions/Referrals Prescriptions/Med Rec: No Action levothyroxine 50 mcg Capsule 50 mcg PO QDAY pantoprazole [Protonix] 40 mg tablet,delayed release (DR/EC) 40 mg PO QDAY Qty: 30 0RF cephalexin 500 mg capsule 500 mg PO BID Qty: 20 0RF ondansetron 4 mg tablet,disintegrating 4 mg PO Q6H PRN (Reason: nausea and vomiting) Qty: 14 0RF furosemide 20 mg tablet 20 mg PO QDAY cephalexin 500 mg capsule 500 mg PO BID Qty: 14 0RF Referrals: No Primary/Family,Physician [Primary Care Provider] - In 1 week Problem List Clinical Impression: Ground-level fall Patient/Caregiver Discharge Instructions Education Materials: Exercises to Prevent Falls, ED Mechanical Fall, ED Fall Dizziness Weakn Balance Additional Instructions: Recommendation after ER visit: -no acute fractures found today. -avoid taking medications which can case weak balance such as Benadryl, Melatonin and etc. -please use walker every time you ambulate. -follow up with PCP within 1 week. -return to the ED if symptoms recur or worsen. Print Language: Palauan Stand Alone Forms: Maame Award Info., Patient Portal Info Letter
[2024-04-17 02:01] VITALS: BMI 21.7
[2024-04-17 02:12] VITALS: BP 168/94; PULSE 92; RESP 15; TEMP 36.3; O2SAT 99
[2024-04-17 02:15] VITALS: PULSE 96
[2024-04-17 02:29] LABS: Collection Type, Urine Clean Catch; Squamous Epithelial Cell,Urine 0 /hpf (0-5)
[2024-04-17 02:32] LABS: Basophils % (Auto) 0 % (0-2.5); Eosinophils # (Auto) 0.2 Thou/mm3 (0.0-0.5); Eosinophils % (Auto) 2 % (0-10); Hematocrit 36.6 % (36.0-46.0); Hemoglobin 12.7 g/dL (12.0-16.0); Immature Granulocytes % (Auto) 0 % (0-0); Immature Granulocytes Auto 0.01 Thou/mm3 (0.00-0.00); Lactate (Lactic Acid) 1.5 mMol/L (0.4-2.0); Lymphocytes # (Auto) 1.8 Thou/mm3 (1.0-4.8); Lymphocytes % (Auto) 28 % (10-50); Mean Corpuscular HGB Conc 34.7 g/dl (31.0-37.0); Mean Corpuscular Hemoglobin 31.1 pg (25.0-35.0); Mean Corpuscular Volume 90 fL (80-100); Monocytes # (Auto) 0.6 Thou/mm3 (0.0-0.8); Monocytes % (Auto) 9 % (0-12); Neutrophils # (Auto) 4.1 Thou/mm3 (1.8-7.7); Neutrophils % (Auto) 61 % (37-80); Nucleated Red Blood Cell % 0 /100 WBC (0); Platelet Count 237 Thou/mm3 (140-440); RDW Standard Deviation 41.1 fL (36.4-46.3); Red Blood Count 4.09 Miln/mm3 (4.00-5.20); White Blood Count 6.7 Thou/mm3 (3.6-11.0)
[2024-04-17 02:33] LABS: Bilirubin,Urine Negative (Negative); Blood,Urine Trace (Negative); Clarity,Urine Clear (Clear/Hazy); Color,Urine Lt-Yellow (Lt Yel-Yel); Glucose, Urine Negative (Negative); Ketones,Urine Negative (Negative); Leukocyte Esterase,Urine Negative (Negative); Nitrite,Urine Negative (Negative); PH,Urine 6.5 (5.0-7.0); Protein,Urine Negative (Neg - Trace); RBC,Urine 2 /hpf (0-3); Specific Gravity,Urine 1.015 (1.001-1.035); Urobilinogen,Urine Negative mg/dL (0.0-1.0); WBC,Urine 3 /hpf (0-5)
[2024-04-17] MEDS: ONDANSETRON INJ 2 MG/ML INJ 2 ML 4 MG IV (02:37)
[2024-04-17] MEDS: MORPHINE SULF INJ 10 MG/ML VIAL 2 MG IVP (02:37)
[2024-04-17 02:40] LABS: Amphetamine/Methamp Scrn,U Negative (Negative); Barbiturate Screen,Urine Negative (Negative); Benzodiazepines Screen,Urine Negative (Negative); Benzoylecgonine Screen, Ur Negative (Negative); Fentanyl Screen,Urine Negative (Negative); Opiate Screen,Urine Negative (Negative); THC Screen,Urine Negative (Negative)
[2024-04-17 02:55] LABS: Alanine Aminotransferase 22 U/L (10-49); Albumin, Serum 4.4 gm/dL (3.4-4.8); Albumin/Globulin Ratio 1.6 (1.2-2.2); Alkaline Phosphatase 60 U/L (46-116); Anion Gap 11 (7-16); Aspartate Amino Transferase 35 U/L (0-34); BUN/Creatinine Ratio 16 Ratio (12-20); Bilirubin,Total 0.5 mg/dL (0.3-1.2); Blood Urea Nitrogen 13 mg/dL (9-23); Calcium 10.1 mg/dL (8.3-10.6); Calcium (Corrected) 10.1 mg/dL (8.5-10.1); Carbon Dioxide 20.2 mMol/L (20.0-31.0); Chloride 113 mMol/L (98-107); Creatinine (Component) 0.8 mg/dL (0.6-1.3); Estimated Creatinine Clearance 41.4 mL/min (>60); Globulin 2.7 gm/dL (2.3-3.5); Glucose 95 mg/dL (74-106); Magnesium 1.9 mg/dL (1.6-2.6); Osmolality,Calculated 286 (275-295); Phosphorous 2.6 mg/dL (2.4-5.1); Potassium 3.6 mMol/L (3.4-5.1); Sodium 144 mMol/L (136-145); Total Protein 7.1 gm/dL (5.7-8.2); Troponin I < 0.020 ng/mL (0.0-0.045); eGFR > 60 See Note
--- NOTE | 2024-04-17 04:29 | PRELIM_ITS ---
CT scan of the head without intravenous contrast (axial sections with sagittal and coronal reformats) April 17, 2024 0335 hours Clinical History: Fall Reference is made to the prior report dated October. Findings: There is no evidence of intracranial hemorrhage, mass effect or midline shift. There are periventricular white matter hypodensities, compatible with chronic small vessel ischemia. There is mild volume loss. Basal ganglia calcifications are present bilaterally. The calvarium is intact. The mastoid air cells and the visualized paranasal sinuses are clear. Impression: No evidence of intracranial hemorrhage, midline shift or calvarial fracture. Periventricular chronic small vessel ischemia and volume loss. Report Electronically Signed By: Sahil Beal 04/17/2024 4:28:02 AM [EST]
--- NOTE | 2024-04-17 04:29 | PRELIM_ITS ---
CT scan of the cervical spine without intravenous contrast (axial sections with sagittal and coronal reformats) April 17, 2024 0335 hours Clinical History: Fall Reference is made to the prior report dated October. Findings: The bones are osteopenic.There is no fracture or traumatic subluxation. There is mild reversal of cervical lordosis, which may be related to muscle spasm or patient positioning.There is minimal anterolisthesis of C2 over C3. There are multilevel degenerative changes in the form of marginal osteophytes, decreased disc height.C3-C4 through C6-C7 disc osteophyte complexes are noted with associated uncinate hypertrophy and facet arthropathy causing mild spinal canal and bilateral neural foraminal narrowing. The prevertebral soft tissues are unremarkable. Impression: No evidence of fracture or traumatic subluxation. Degenerative changes as described above. Report Electronically Signed By: Sahil Beal 04/17/2024 4:28:12 AM [EST]
--- NOTE | 2024-04-17 04:30 | PRELIM_ITS ---
CT scan of the chest, abdomen and pelvis without intravenous contrast (axial sections with sagittal and coronal reformats) April 17, 2024 0341 hours Clinical History: fall Findings: Bibasilar dependent atelectasis is present. There is no pleural effusion or pneumothorax. The aorta is unremarkable on this noncontrast study. There is no mediastinal collection. There is no pericardial effusion. There is a nonobstructing calculus in the left kidney measuring 3 mm. The liver, gallbladder, spleen, pancreas, adrenals and right kidney are unremarkable on this noncontrast study. There are multiple colonic diverticula without evidence of diverticulitis. The bowel is unremarkable. The urinary bladder is distended, otherwise unremarkable. There is no free fluid or free air. The bones are osteopenic. No fracture is identified. There is minimal anterolisthesis of L4 on L5 vertebra. Degenerative changes are noted in the form of multilevel marginal osteophytes, decreased disc spaces and facet arthropathy. Impression: No visceral or bony injury to the chest, abdomen or pelvis. Other findings as described above. Report Electronically Signed By: Sahil Beal 04/17/2024 4:30:22 AM [EST]
[2024-04-17] MEDS: Magnesium Sulfate 1 gm Ivpb 1 GM/100 ML BAG IV (04:48)
--- NOTE | 2024-04-17 05:30 | PC.NURSE ---
PT ABLE TO STAND UP AT BEDSIDE WITH ASSIST. DR. MONROE AND RESIDENT AT BEDSIDE AND AWARE.
[2024-04-17 05:39] VITALS: BP 151/91; PULSE 90; RESP 18; TEMP 36.4; O2SAT 100
== END 2024-04-17 06:00 | disposition home or self-care (01) ==
PROVIDERS: Student in an Organized Health Care Education/Training Program; Emergency Provider Emergency Medicine
DX: S29.9XXA Unspecified injury of thorax, initial encounter (principal); S01.111A Laceration without foreign body of right eyelid and periocular area, initial encounter; S00.33XA Contusion of nose, initial encounter; S09.90XA Unspecified injury of head, initial encounter; S19.9XXA Unspecified injury of neck, initial encounter; S39.91XA Unspecified injury of abdomen, initial encounter; M19.079 Primary osteoarthritis, unspecified ankle and foot; M19.049 Primary osteoarthritis, unspecified hand; I49.3 Ventricular premature depolarization; I10 Essential (primary) hypertension; W18.30XA Fall on same level, unspecified, initial encounter
CPT/HCPCS: 36415; 70450; 71250; 72125; 74176; 80053; 80307; 81001; 83605; 83735; 84100; 84484; 85025; 93005; 96365; 96375; 99284; J2270; J2405; J3475

== ENCOUNTER → 2024-05-10 | Outpatient (CLI) | payer OTHER, MEDICAID, SELFPAY ==
--- NOTE | 2024-05-10 | XR_ITS ---
Examination: Bilateral knees, standing AP single view. Technique: Standing AP bilateral knees, standing AP single view Exam date and time: May 10, 2024 0956 hours INDICATIONS: Bilateral knee pain beginning one year ago. FINDINGS: Prominent osteopenia. Mild to moderate narrowing medial joint space right knee Mild narrowing medial joint space left knee No fracture or dislocation Soft tissue vascular calcification. IMPRESSION: Mild to moderate narrowing medial joint space right knee Mild narrowing medial joint space left knee
--- NOTE | 2024-05-10 09:31 | XR_ITS ---
Examination: Knee bilateral, 6 views Technique: Knee AP, lateral, oblique each knee total 6 views Date and time of exam: May 10, 2024 0944 hours INDICATIONS: Bilateral knee pain beginning one year ago. FINDINGS: Prominent osteopenia Soft tissue vascular calcification. Mild narrowing medial joint spaces Mild narrowing patellofemoral joint spaces Meniscus calcification IMPRESSION: Mild osteoarthritis
== END | disposition home or self-care (01) ==
PROVIDERS: PCP Family Medicine; Referring Provider Orthopaedic Surgery; Visit Provider Orthopaedic Surgery
DX: M17.0 Bilateral primary osteoarthritis of knee (principal); M25.862 Other specified joint disorders, left knee; M25.861 Other specified joint disorders, right knee
CPT/HCPCS: 73562; 73565

== ENCOUNTER → 2024-06-20 | Outpatient (CLI) | payer OTHER, MEDICAID, SELFPAY ==
--- NOTE | 2024-06-20 12:30 | XR_ITS ---
Examination: MRI lumbar spine without contrast Date and time of exam: 09/20/2024 1304 hours Comparison February 10, 2015 INDICATIONS: Lower back pain and weakness in the legs beginning one year ago Technique: Multiple MRI axial and sagittal sections lumbar spine. Sagittal T2-weighted images, TR 3500, TE 118 T1 weighted transverse sections, TR 688 T8.5, T2-weighted sagittal sections T1 weighted sagittal sections TR 621, TE 30 T2 axial sections, TR 4, 190, TE 84. Findings: Grade 1 anterolisthesis L4 on L5 Advanced disc narrowing L5-S1 No lumbar fracture Moderate to advanced disc narrowing L3-L4 Mildly heterogeneous marrow signal lumbar vertebral bodies L5-S1 2 mm central lumbar disc bulge L4-L5 4 mm central lumbar disc bulge L3-L4 4 mm left paracentral disc bulge L2-L3 no disc lesion Normal adrenal disc protrusion IMPRESSION: Significant degenerative disc disease L3-L4, L5-S1 L5-S1 2 mm central lumbar disc bulge L4-L5, L3-L4 4 mm disc bulges as above
== END | disposition home or self-care (01) ==
PROVIDERS: PCP Family Medicine; Referring Provider Orthopaedic Surgery; Visit Provider Orthopaedic Surgery
DX: M51.360 Other intervertebral disc degeneration, lumbar region with discogenic back pain only (principal); M51.370 Other intervertebral disc degeneration, lumbosacral region with discogenic back pain only
CPT/HCPCS: 72148

== ENCOUNTER → 2024-07-09 | Outpatient (CLI) | payer OTHER, MEDICAID, SELFPAY ==
--- NOTE | 2024-07-09 13:40 | XR_ITS ---
Examination: Bone densitometry Date and time of exam:July 09, 2024 1344 hours INDICATIONS: Menopause age 49 levothyroxine 20 years vitamin D one year, personal history osteoporosis Technique: Lumbar spine and hip total bone mineralization values of an calculated. Peak reference and age match control results have been displayed. Findings: Lumbar spine total bone mineralization is0.890 gm/cm2. This is 1.4 standard deviations below peak reference. This is 1.4 standard deviations above age-matched controls. Hip total bone mineralization is 0.724 gm/cm2 This is 1.8 standard deviations below peak reference. This is 0.5 standard deviations above age-matched controls Impression: There is osteopenia based on lumbar spine measurements. There is osteopenia based on hip measurements Lumbar mineralization is increased 1.4% compared with March 11, 2022 Hip mineralization is decreased 2.7% compared with March 11, 2022
[2024-07-09 14:33] LABS: Basophils % (Auto) 0 % (0-2.5); Eosinophils # (Auto) 0.1 Thou/mm3 (0.0-0.5); Eosinophils % (Auto) 2 % (0-10); Hemoglobin 12.6 g/dL (12.0-16.0); Immature Granulocytes % (Auto) 0 % (0-0); Immature Granulocytes Auto 0.01 Thou/mm3 (0.00-0.00); Lymphocytes # (Auto) 2.5 Thou/mm3 (1.0-4.8); Lymphocytes % (Auto) 38 % (10-50); Mean Corpuscular HGB Conc 34.1 g/dl (31.0-37.0); Mean Corpuscular Hemoglobin 32.1 pg (25.0-35.0); Mean Corpuscular Volume 94 fL (80-100); Monocytes # (Auto) 0.6 Thou/mm3 (0.0-0.8); Monocytes % (Auto) 9 % (0-12); Neutrophils # (Auto) 3.4 Thou/mm3 (1.8-7.7); Neutrophils % (Auto) 51 % (37-80); Nucleated Red Blood Cell % 0 /100 WBC (0); Platelet Count 263 Thou/mm3 (140-440); RDW Standard Deviation 43.1 fL (36.4-46.3); Red Blood Count 3.93 Miln/mm3 (4.00-5.20); White Blood Count 6.7 Thou/mm3 (3.6-11.0)
[2024-07-09 14:40] LABS: Glucose Estimated Average 97 mg/dL (80-131)
[2024-07-09 14:43] LABS: T4 (Thyroxine) 12.1 mcg/dL (4.5-10.9)
[2024-07-09 14:44] LABS: Alanine Aminotransferase 12 U/L (10-49); Albumin, Serum 4.4 gm/dL (3.4-4.8); Albumin/Globulin Ratio 1.8 (1.2-2.2); Alkaline Phosphatase 59 U/L (46-116); Anion Gap 13 (7-16); Aspartate Amino Transferase 21 U/L (0-34); BUN/Creatinine Ratio 19 Ratio (12-20); Bilirubin,Total 0.8 mg/dL (0.3-1.2); Blood Urea Nitrogen 15 mg/dL (9-23); Calcium 9.1 mg/dL (8.3-10.6); Calcium (Corrected) 9.1 mg/dL (8.5-10.1); Carbon Dioxide 24.1 mMol/L (20.0-31.0); Cardiac Risk Estimate 2.9 RATIO (3.7-5.6); Chloride 110 mMol/L (98-107); Cholesterol 195 mg/dL (132-200); Creatinine (Component) 0.8 mg/dL (0.6-1.3); Globulin 2.4 gm/dL (2.3-3.5); Glucose 85 mg/dL (74-106); HDL Cholesterol 67 mg/dL (40-60); LDL Cholesterol,Calculated 113 mg/dL (0-130); Osmolality,Calculated 292 (275-295); Sodium 147 mMol/L (136-145); Thyroid Stimulating Hormone 0.67 uIU/mL (0.55-4.78); Total Protein 6.8 gm/dL (5.7-8.2); Triglycerides 76 mg/dL (30-150); eGFR > 60 See Note
== END | disposition home or self-care (01) ==
LOC: CDIM 13:19
PROVIDERS: Referring Provider Nurse Practitioner Family; Visit Provider Nurse Practitioner Family
DX: M85.89 Other specified disorders of bone density and structure, multiple sites (principal)
CPT/HCPCS: 36415; 77080; 80053; 80061; 82043; 82570; 83036; 84436; 84443; 85025

== ENCOUNTER → 2024-07-10 | Outpatient (CLI) | payer OTHER, MEDICAID, SELFPAY ==
[2024-07-10 10:45] LABS: Creatinine MALB Rnd Ur 33 mg/dL (30-125); Microalbumin, Random Urine < 3 mg/L (0-300)
== END | disposition home or self-care (01) ==
LOC: SLDO 08:40
PROVIDERS: Referring Provider Nurse Practitioner Family; Visit Provider Nurse Practitioner Family
DX: I10 Essential (primary) hypertension (principal)
CPT/HCPCS: 82043; 82570

== ENCOUNTER → 2024-10-11 | Outpatient (CLI) | payer OTHER, MEDICAID, SELFPAY ==
--- NOTE | 2024-10-11 10:47 | XR_ITS ---
EXAMINATION: Ankle, left 3 views . Technique: Ankle AP, oblique, lateral 3 views Date and time of exam: October 11, 2024, 1052 hours INDICATIONS: Patient fell 2 years ago with injury to the ankle, persistent ankle pain. FINDINGS: Severe osteopenia Medial malleolar soft tissue swelling Old appearing fracture involving the medial malleolus but clinical correlation advised No ankle dislocation IMPRESSION: Severe osteopenia Old appearing fracture involving the medial malleolus but clinical correlation advised
--- NOTE | 2024-10-11 10:47 | XR_ITS ---
Examination: AP lateral chest 2 views TECHNIQUE: Sitting AP lateral portable chest 2 views Date and time: October 12, 2019 5:11 AM INDICATIONS: Intermittent chest pain beginning 2 years ago COMPARISON: April 13, 2024. FINDINGS: Mild hyperexpansion. Normal heart size. Accentuation basilar bronchovascular markings. No lobar pneumonia or pulmonary edema. Severe osteopenia IMPRESSION: Basilar bronchitis pattern
== END | disposition home or self-care (01) ==
PROVIDERS: PCP Nurse Practitioner Family; Referring Provider Nurse Practitioner Family; Visit Provider Nurse Practitioner Family
DX: M85.872 Other specified disorders of bone density and structure, left ankle and foot (principal); S99.912S Unspecified injury of left ankle, sequela; W19.XXXS Unspecified fall, sequela
CPT/HCPCS: 71046; 73610

== ENCOUNTER 2024-10-17 09:13 | Emergency (ER) | payer OTHER, MEDICAID, SELFPAY ==
[2024-10-17] VITALS (7 sets, daily range): BP systolic 108–152; BP diastolic 76–101; PULSE 73–99; RESP 17–20; TEMP 36.5–36.7; O2SAT 94–100; BMI 20.7
--- NOTE | 2024-10-17 | XR_ITS ---
MRI abdomen, without contrast. MRCP Date and time of exam: October 17, 2024 1621 hours, comparison August 17, 2023 INDICATIONS: Right upper abdominal pain nausea vomiting today, gallbladder sonogram 10/17/2024 enlarged common bile duct with 3 mm common bile duct stone Technique: Multiple axial and coronal images of the abdomen have been obtained with the Siemens 1.5T MRI scanner. Images obtained included T1 weighted transverse images, T2-weighted transverse images, T2-weighted transverse images fat-suppressed, T2 weighted haste fat suppressed transverse images, T1 weighted images, in and out of phase images, T2-weighted coronal images, breath hold, T2 weighted haze coronal images as well as T2 weighted coronal thick slab images, MRCP. Findings: No focal liver lesions No gallstones, gallbladder wall is not thickened Enlarged common bile duct 8 mm Dilated pancreatic duct 3 mm No common hepatic or common bile duct stones noted No pancreatic mass No peripancreatic edema Spleen is not enlarged No hydronephrosis No ascites IMPRESSION: Normal gallbladder Common bile duct measures 8 mm, no definite common bile duct stones Minimal dilatation pancreatic duct
--- NOTE | 2024-10-17 09:41 | PC.NURSE ---
Arrived via Ambulance from home. GCS 15. Compaints of right upper quadrant pain and constipation x 5 days. Per family, taking senokot every night, but was held due to nausea and vomiting x 3 days Abdomen flat, soft, tender upon palpation. Bowel sounds present x [address] Cadena at bedside assisting patient. Plan of care discussed. Son at bedside.
--- NOTE | 2024-10-17 09:52 | XR_ITS ---
Examination: CT abdomen and pelvis without contrast. Coronal 3-D reconstructions. Sagittal 2-D reconstructions. Date and time of exam:October 17, 2024 1042 hours INDICATIONS: Onset right upper abdominal pain with nausea today COMPARISON: April 17, 2024 CTDI: vol (mGy): 5.75 DLP: (mGycm): 294 Technique: Axial images of the abdomen have been obtained, 3 mm slice thickness Intravenous contrast material has not been administered. Low dose protocols were performed. One or more of the following dose reduction techniques were used; automated exposure control, adjustment of the mA and/or KV according to patient size, use of iterative reconstruction technique. Findings: No focal liver or splenic lesions No gallstones The pancreatic duct is dilated up to 5 mm No definite common bile duct stones Aortic calcification no aneurysmal dilatation 4 mm calculus lower pole left kidney, no hydronephrosis or ureteral calculi No pericecal inflammatory change. Colonic diverticulosis, no diverticulitis No bladder mass Absent uterus No pelvic mass Severe osteopenia with advanced degenerative disc disease L3-L4, L5-S1 Moderate narrowing hip joints IMPRESSION: Abnormal dilatation of the pancreatic duct, recommend hepatobiliary sonography follow-up 4 mm calculus lower pole left kidney, no hydronephrosis or ureteral calculi Colonic diverticulosis, no diverticulitis
--- NOTE | 2024-10-17 09:52 | XR_ITS ---
Examination: Abdomen sonogram, Limited Date and time of exam: October 17, 2024, 1157 hours INDICATIONS: Right upper abdominal pain beginning years ago. Technique: Real-time green scale transabdominal sonographic images of the upper abdomen obtained. Findings: Normal gallbladder. Common bile duct enlarged 1.0 cm with 3 mm probable stone Pancreatic head 1.7 cm Liver 11.9 cm no focal liver lesions Normal hepatopedal portal venous oh Patent IVC IMPRESSION: Recommend MRCP follow-up to confirm 3 mm stone in the dilated common bile duct
--- NOTE | 2024-10-17 09:54 | XR_ITS ---
Examination: AP chest single view TECHNIQUE: AP portable upright chest single view Date and time: October 17, 2024 1103 hours, comparison 10/11/2024 INDICATIONS: Coughing shortness of breath today. FINDINGS: Accentuation bronchovascular markings. No lobar pneumonia. Normal heart size. Suspicious for 5 mm pulmonary nodule left upper lobe. Prominent osteopenia IMPRESSION: Bronchitis pattern Recommend AP lower lateral chest follow-up to exclude 5 mm pulmonary nodule left upper lobe.
--- NOTE | 2024-10-17 10:04 | PD.EDABDPN ---
ED Abdominal Pain RME/HPI General Chief Complaint: Abdominal Pain Stated complaint: ABD PAIN Time seen by provider: 10/17/24 09:21 Arrival date/time: 10/17/24 09:13 Limitations: no limitations RME / HPI RME / HPI narrative: 84 year old female with history of dementia, hypertension, hyperlipidemia, arthritis presents to the ED BIBA from home for evaluation of abdominal pain. Describes pain as aching in sensation that is located most to the right upper quadrant, rating 8/10 in severity and remaining constant since onset 1 day ago. Accompanied by decreased appetite, nausea, vomiting (over the last 3 days, none in the last 24 hours), and constipation (last bowel movement 5 days ago). Son at bedside reports the patient normally receives Senokot for constipation which provides relief. However, has taken for 5 days without change. No other associated symptoms reported. Denies fevers, chills, chest pain, cough, shortness of breath, or change in urinary habits. Related Data Home Medications ?Medication ?Instructions ?Recorded ?Confirmed levothyroxine 50 mcg capsule 50 mcg PO QDAY 04/20/21 10/17/24 amlodipine 5 mg tablet mg 10/17/24 ascorbic acid (vitamin C) 500 mg 500 mg PO QDAY 10/17/24 10/17/24 tablet (C-500) cetirizine 10 mg tablet mg 10/17/24 dicyclomine 10 mg capsule mg 10/17/24 donepezil 5 mg tablet mg 10/17/24 gabapentin 100 mg capsule mg 10/17/24 ibandronate 150 mg tablet mg PO 10/17/24 levothyroxine 50 mcg tablet mcg 10/17/24 pravastatin 10 mg tablet mg 10/17/24 sennosides 8.6 mg tablet (Senokot) 8.6 mg PO QDAY 10/17/24 10/17/24 tramadol 50 mg tablet mg 10/17/24 Previous Rx's ?Medication ?Instructions ?Recorded pantoprazole 40 mg tablet,delayed 40 mg PO QDAY #30 tabs 10/15/21 release (Protonix) ondansetron 4 mg disintegrating 4 mg PO Q6H PRN nausea and 03/15/24 tablet vomiting #14 tabs Held on 10/17/24. Instructions: Doctor's Order bisacodyl 5 mg tablet,delayed 10 mg (2 x 5 mg) PO QDAY 10/17/24 release (Dulcolax (bisacodyl)) CONSTIPATION #60 tabs lactulose 10 gram/15 mL oral 20 g (30 mL) PO QID CONSTIPATION 10/17/24 solution #1,200 mL Allergies Allergy/AdvReac Type Severity Reaction Status Date / Time No Known Allergies Allergy Verified 05/19/23 11:43 Review of Systems Review of Systems Systems Reviewed: All systems reviewed, normal except as documented Past Medical History Past Medical History CARDIAC: Positive Cardiac Disorders, Deep Vein Thrombosis and Hypertension RESPIRATORY: Positive Pneumonia (2 YEARS AGO) GASTROINTESTINAL: Positive Gastrointestinal Disorders (ABDOMINAL PAIN AFTER EATING, CONSTIPATION) and Gastroesophageal Reflux Disease REPRODUCTIVE: Positive Previous Pregnancies MUSCULOSKELETAL: Positive Musculoskeletal Disorders (CARPAL TUNNEL) and Carpal Tunnel Syndrome ENDOCRINE: Positive Endocrine Disorders and Hypothyroidism PSYCHO/SOCIAL: Positive Anxiety OTHER HISTORY: Positive Falls and Cancer Family History FAMILY HISTORY: Positive Family Cardiac Disorders, Family Gastrointestinal Problems, Family Cancer and Family Anesthesia Reaction Surgical History SURGICAL: Positive Hysterectomy Social History SMOKING STATUS: Never smoker ED Exam General Limitations: Present no limitations General appearance: Present alert (oriented x2) and in no apparent distress Head Head exam: Present atraumatic Eye Eye exam: Present normal appearance, PERRL and EOMI ENT ENT exam: Present normal exam, normal oropharynx and mucous membranes moist Neck Neck exam: Present normal inspection, full ROM and trachea midline Chest Chest inspection: Present normal inspection and symmetric chest wall rise Respiratory Respiratory exam: Present normal lung sounds bilaterally Cardiovascular Cardiovascular exam: Present regular rate, normal rhythm and normal heart sounds Abdominal Exam Abdominal exam: Present tenderness (right mid abdomen and RUQ ), hypoactive bowel sounds and other (Firm to palpation, no masses) Extremities Exam Extremities exam: Present normal inspection and full ROM Back Exam Back exam: Present normal inspection and full ROM Neurological Exam Neurological exam: Present alert, oriented X3 and CN II-XII intact Psychiatric Psychiatric exam: Present normal affect and normal mood Skin Skin exam: Present warm, dry, intact and normal color Course Quality Measures none Orders Category Date Time Status Exhibit Cleaner STAT Care 10/17/24 09:52 Active Continuous Pulse Oximetry STAT Care 10/17/24 09:52 Completed Insert IV STAT Care 10/17/24 09:52 Active MRI Screening NOW Care 10/17/24 12:43 Active NPO STAT Care 10/17/24 09:[address] abdomen pelvis wo con Stat Exams 10/17/24 09:52 Completed CXRP [XR chest 1V portable] Stat Exams 10/17/24 09:54 Completed MR MRCP Stat Exams 10/17/24 Completed US gall bladder Stat Exams 10/17/24 09:52 Completed CBC Stat Lab 10/17/24 10:16 Completed Comprehensive Metabolic Panel Stat Lab 10/17/24 10:16 Completed Lipase Stat Lab 10/17/24 10:16 Completed Magnesium Stat Lab 10/17/24 10:16 Completed Prothrombin Time with INR Stat Lab 10/17/24 10:16 Completed Urinalysis Stat Lab 10/17/24 16:20 Ordered Acetaminophen Ivpb [Ofirmev Inj] Med 10/17/24 10:00 Discontinued 1,000 mg in 100 ml IV X1 Lactulose Syrup [Enulose Syrup] Med 10/17/24 10:00 Discontinued 20 gm PO X1 ONE Midazolam Inj [Versed Inj] Med 10/17/24 13:57 Discontinued 2 mg IVP X1 ONE Ondansetron Inj [Zofran Inj] Med 10/17/24 09:52 Discontinued 4 mg IVP X1 ONE Sodium Chloride 0.9% 1000 ml [Ns] 1,000 ml Med 10/17/24 09:52 Discontinued IV 250 mls/hr bisacodyL [Dulcolax Supp] Med 10/17/24 10:00 Discontinued 10 mg GA X1 ONE Vital Signs Vital signs: Vital Signs Temperature 97.7 F 10/17/24 09:29 Pulse Rate 73 10/17/24 09:29 Respiratory Rate 19 10/17/24 09:29 Blood Pressure 152/101 H 10/17/24 09:29 Pulse Oximetry (%) 100 10/17/24 09:29 Oxygen Delivery Method Room Air 10/17/24 09:29 Pulse ox is 100% on room air which is adequate. Abdominal Pain MDM MDM Narrative MDM Narrative:: IMargo, amy scribing for and in the presence of Dr. Cadena. Patient data External records reviewed:: [facility] previous records (I reviewed ED visit on 04/17/2024 ) and EMS form Clinical information provided by:: patient and EMS Social determinants that could affect healthcare access:: none Patient has the following chronic illnesses:: dementia, hypertension, hyperlipidemia, arthritis How is presenting disease/condition affected by chronic disease/condition?: uneffected by Evaluation data The following diagnostics were reviewed and interpreted by me:: lab results and radiology exam(s) Lab and/or radiology exams considered but not ordered:: None Interpretation Summary: Ordering Physician: Eduardo Cadena MD Date of Service: 10/17/24 Procedure(s): CT abdomen pelvis wo con Accession Number(s): [id number] cc: Eduardo Cadena MD; Tim Bangura MD; Yovanny Jesus MD~ Examination: CT abdomen and pelvis without contrast. Coronal 3-D reconstructions. Sagittal 2-D reconstructions. Date and time of exam:October 17, 2024 1042 hours INDICATIONS: Onset right upper abdominal pain with nausea today COMPARISON: April 17, 2024 CTDI: vol (mGy): 5.75 DLP: (mGycm): 294 Technique: Axial images of the abdomen have been obtained, 3 mm slice thickness Intravenous contrast material has not been administered. Low dose protocols were performed. One or more of the following dose reduction techniques were used; automated exposure control, adjustment of the mA and/or KV according to patient size, use of iterative reconstruction technique. Findings: No focal liver or splenic lesions No gallstones The pancreatic duct is dilated up to 5 mm No definite common bile duct stones Aortic calcification no aneurysmal dilatation 4 mm calculus lower pole left kidney, no hydronephrosis or ureteral calculi No pericecal inflammatory change. Colonic diverticulosis, no diverticulitis No bladder mass Absent uterus No pelvic mass Severe osteopenia with advanced degenerative disc disease L3-L4, L5-S1 Moderate narrowing hip joints IMPRESSION: Abnormal dilatation of the pancreatic duct, recommend hepatobiliary sonography follow-up 4 mm calculus lower pole left kidney, no hydronephrosis or ureteral calculi Colonic diverticulosis, no diverticulitis Dictated By: Tim Bangura MD Signed By: <Electronically signed by Tim Bangura MD in OV> 10/17/24 1114 Ordering Physician: Eduardo Cadena MD Date of Service: 10/17/24 Procedure(s): US gall bladder Accession Number(s): [id number] cc: Eduardo Cadena MD; Tim Bangura MD; Yovanny Jesus MD~ Examination: Abdomen sonogram, Limited Date and time of exam: October 17, 2024, 1157 hours INDICATIONS: Right upper abdominal pain beginning years ago. Technique: Real-time green scale transabdominal sonographic images of the upper abdomen obtained. Findings: Normal gallbladder. Common bile duct enlarged 1.0 cm with 3 mm probable stone Pancreatic head 1.7 cm Liver 11.9 cm no focal liver lesions Normal hepatopedal portal venous oh Patent IVC IMPRESSION: Recommend MRCP follow-up to confirm 3 mm stone in the dilated common bile duct Dictated By: Tim Bangura MD Signed By: <Electronically signed by Tim Bangura MD in OV> 10/17/24 1227 Ordering Physician: Eduardo Cadena MD Date of Service: 10/17/24 Procedure(s): XR chest 1V portable Accession Number(s): [id number] cc: Eduardo Cadena MD; Tim Bangura MD; Yovanny Jesus MD~ Examination: AP chest single view TECHNIQUE: AP portable upright chest single view Date and time: October 17, 2024 1103 hours, comparison 10/11/2024 INDICATIONS: Coughing shortness of breath today. FINDINGS: Accentuation bronchovascular markings. No lobar pneumonia. Normal heart size. Suspicious for 5 mm pulmonary nodule left upper lobe. Prominent osteopenia IMPRESSION: Bronchitis pattern Recommend AP lower lateral chest follow-up to exclude 5 mm pulmonary nodule left upper lobe. Dictated By: Tim Bangura MD Signed By: <Electronically signed by Tim Bangura MD in OV> 10/17/24 1116 Ordering Physician: Eduardo Cadena MD Date of Service: 10/17/24 Procedure(s): MR MRCP Accession Number(s): [id number] cc: Eduardo Cadena MD; Tim Bangura MD; Yovanny Jesus MD~ MRI abdomen, without contrast. MRCP Date and time of exam: October 17, 2024 1621 hours, comparison August 17, 2023 INDICATIONS: Right upper abdominal pain nausea vomiting today, gallbladder sonogram 10/17/2024 enlarged common bile duct with 3 mm common bile duct stone Technique: Multiple axial and coronal images of the abdomen have been obtained with the Siemens 1.5T MRI scanner. Images obtained included T1 weighted transverse images, T2-weighted transverse images, T2-weighted transverse images fat-suppressed, T2 weighted haste fat suppressed transverse images, T1 weighted images, in and out of phase images, T2-weighted coronal images, breath hold, T2 weighted haze coronal images as well as T2 weighted coronal thick slab images, MRCP. Findings: No focal liver lesions No gallstones, gallbladder wall is not thickened Enlarged common bile duct 8 mm Dilated pancreatic duct 3 mm No common hepatic or common bile duct stones noted No pancreatic mass No peripancreatic edema Spleen is not enlarged No hydronephrosis No ascites IMPRESSION: Normal gallbladder Common bile duct measures 8 mm, no definite common bile duct stones Minimal dilatation pancreatic duct Dictated By: Tim Bangura MD Signed By: <Electronically signed by Tim Bangura MD in OV> 10/17/24 1451 Medications / Prescriptions Medications or Prescriptions considered but not ordered:: None Medication administrations:: Medication Administration History Discontinued Medications Bisacodyl (Bisacodyl 10 Mg Supp) 10 mg GA X1 ONE; Protocol Stop: 10/17/24 10:01 Last Admin: 10/17/24 11:10 Dose: 10 mg Documented By: ES Sodium Chloride (Ns) 1,000 mls @ 250 mls/hr IV .Q4H ONE Stop: 10/17/24 13:51 Last Admin: 10/17/24 10:35 Dose: 250 mls/hr Documented By: ES Acetaminophen (Ofirmev Inj) 1,000 mg in 100 mls @ 250 mls/hr IV X1 ONE Stop: 10/17/24 10:23 Last Infusion: 10/17/24 11:23 Dose: Infused Documented By: Admin: 10/17/24 10:59 Dose: 250 mls/hr Documented By: ES Lactulose (Lactulose Syrup 20 Gm/30 Ml Udc) 20 gm PO X1 ONE; Protocol Stop: 10/17/24 10:01 Last Admin: 10/17/24 11:10 Dose: 20 gm Documented By: ES Midazolam HCl (Midazolam Inj 1 Mg/Ml Vial 2 Ml) 2 mg IVP X1 ONE Stop: 10/17/24 13:58 Last Admin: 10/17/24 14:04 Dose: 2 mg Documented By: ER Ondansetron HCl (Ondansetron Inj 2 Mg/Ml Inj 2 Ml) 4 mg IVP X1 ONE Stop: 10/17/24 09:53 Last Admin: 10/17/24 10:36 Dose: 4 mg Documented By: ES See above Consultations Consultation(s) initiated? (list below): No Diagnosis Differential diagnosis abdominal pain: abdominal pain Most likely diagnosis given after review of the tests above:: Constipation Abdominal pain Admission Indicated Admission indicated?: not indicated Admission Request Was there a request for admission?: No Disposition Plan Disposition Plan: Discharge Discharge Attestation Discharge Attestation: The patient and all family members were given an opportunity to ask questions and understood the discharge instructions. Discharge instructions specifically effects, indications for sooner follow up or return to the emergency department, and the expected course of current diagnosis. Patient condition: Stable Discharge Plan Plan Patient Disposition: HOME (Self Care) Prescriptions/Referrals Prescriptions/Med Rec: New lactulose 10 gram/15 mL solution 20 g PO QID MDD 120 ML Qty: 1200 2RF bisacodyl [Dulcolax (bisacodyl)] 5 mg tablet,delayed release (DR/EC) 10 mg PO QDAY MDD 10 MG Qty: 60 0RF No Action levothyroxine 50 mcg Capsule 50 mcg PO QDAY pantoprazole [Protonix] 40 mg tablet,delayed release (DR/EC) 40 mg PO QDAY Qty: 30 0RF ondansetron 4 mg tablet,disintegrating 4 mg PO Q6H PRN (Reason: nausea and vomiting) Qty: 14 0RF donepezil 5 mg tablet Patient Comments: TAKE 1 TABLET BY MOUTH EVERYDAY AT BEDTIME cetirizine 10 mg tablet Patient Comments: TAKE 1 TABLET BY MOUTH EVERY DAY IN THE MORNING amlodipine 5 mg tablet Patient Comments: TAKE 1 TABLET BY MOUTH EVERY DAY tramadol 50 mg tablet Patient Comments: TAKE 1 TABLET BY MOUTH EVERY DAY NEEDED pravastatin 10 mg tablet Patient Comments: TAKE 1 TABLET BY MOUTH EVERY DAY AT BEDTIME FOR 90 DAYS levothyroxine 50 mcg tablet Patient Comments: TAKE 1 TABLET BY MOUTH EVERY DAY IN THE MORNING ON EMPTY STOMACH gabapentin 100 mg capsule Patient Comments: TAKE 1 CAPSULE BY MOUTH AT BEDTIME dicyclomine 10 mg capsule Patient Comments: TAKE 1 CAPSULE BY MOUTH TWICE A DAY ibandronate 150 mg tablet PO Patient Comments: PLEASE SEE ATTACHED FOR DETAILED DIRECTIONS ascorbic acid (vitamin C) [C-500] 500 mg tablet 500 mg PO QDAY sennosides [Senokot] 8.6 mg tablet 8.6 mg PO QDAY Referrals: Yovanny Jesus MD [Primary Care Provider, Family Practice] - In 1 week Problem List Clinical Impression: Constipation, Abdominal pain Patient/Caregiver Discharge Instructions Education Materials: ED Constipation (Adult) Additional Instructions: Follow-up with your doctor in 3 to 4 days. Use the medications as directed. If the pain worsens or you have any concerns return to the emergency department. Print Language: Togolese Stand Alone Forms: [employer] Award Info., Patient Portal Info Letter
[2024-10-17 10:26] LABS: Basophils # (Auto) 0.0 Thou/mm3 (0.0-0.2); Basophils % (Auto) 1 % (0-2.5); Eosinophils # (Auto) 0.1 Thou/mm3 (0.0-0.5); Eosinophils % (Auto) 1 % (0-10); Hematocrit 39.3 % (36.0-46.0); Hemoglobin 13.5 g/dL (12.0-16.0); Immature Granulocytes Auto 0.02 Thou/mm3 (0.00-0.00); Lymphocytes # (Auto) 2.6 Thou/mm3 (1.0-4.8); Lymphocytes % (Auto) 41 % (10-50); Mean Corpuscular HGB Conc 34.4 g/dl (31.0-37.0); Mean Corpuscular Hemoglobin 31.5 pg (25.0-35.0); Mean Corpuscular Volume 92 fL (80-100); Monocytes # (Auto) 0.6 Thou/mm3 (0.0-0.8); Monocytes % (Auto) 9 % (0-12); Neutrophils # (Auto) 3.1 Thou/mm3 (1.8-7.7); Neutrophils % (Auto) 49 % (37-80); Nucleated Red Blood Cell # 0.00 Thou/mm3 (0.00-0.00); Nucleated Red Blood Cell % 0 /100 WBC (0); Platelet Count 354 Thou/mm3 (140-440); RDW Standard Deviation 41.7 fL (36.4-46.3); Red Blood Count 4.29 Miln/mm3 (4.00-5.20); White Blood Count 6.4 Thou/mm3 (3.6-11.0)
[2024-10-17] MEDS: SODIUM CHLORIDE 0.9% 1000 ML 1,000 ML 250 ML IV (10:35)
[2024-10-17] MEDS: ONDANSETRON INJ 2 MG/ML INJ 2 ML 4 MG IVP (10:36)
[2024-10-17 10:38] LABS: INR 1.0 (0.9-1.3); Prothrombin Time 10.9 Seconds (9.0-12.2)
[2024-10-17 10:41] LABS: Alanine Aminotransferase 11 U/L (10-49); Albumin, Serum 4.5 gm/dL (3.4-4.8); Albumin/Globulin Ratio 1.8 (1.2-2.2); Alkaline Phosphatase 77 U/L (46-116); Anion Gap 11 (7-16); Aspartate Amino Transferase 25 U/L (0-34); BUN/Creatinine Ratio 10 Ratio (12-20); Bilirubin,Total 0.6 mg/dL (0.3-1.2); Blood Urea Nitrogen 8 mg/dL (9-23); Calcium 9.8 mg/dL (8.3-10.6); Calcium (Corrected) 9.8 mg/dL (8.5-10.1); Carbon Dioxide 20.8 mMol/L (20.0-31.0); Chloride 112 mMol/L (98-107); Creatinine (Component) 0.8 mg/dL (0.6-1.3); Estimated Creatinine Clearance 40.7 mL/min (>60); Globulin 2.5 gm/dL (2.3-3.5); Glucose 75 mg/dL (74-106); Magnesium 2.3 mg/dL (1.6-2.6); Osmolality,Calculated 284 (275-295); Potassium 4.2 mMol/L (3.4-5.1); Sodium 144 mMol/L (136-145); Total Protein 7.0 gm/dL (5.7-8.2); eGFR > 60 See Note
[2024-10-17] MEDS: ACETAMINOPHEN IVPB 1,000 MG/100 ML VIAL 250 MG IV (10:59)
[2024-10-17] MEDS: LACTULOSE SYRUP 20 GM/30 ML UDC PO (11:10)
[2024-10-17] MEDS: MIDAZOLAM INJ 1 MG/ML VIAL 2 ML 2 MG IVP (14:04)
== END 2024-10-17 16:51 | disposition home or self-care (01) ==
PROVIDERS: Emergency Provider Family Medicine; PCP Family Medicine
DX: K59.00 Constipation, unspecified (principal); R10.9 Unspecified abdominal pain; E78.5 Hyperlipidemia, unspecified; I10 Essential (primary) hypertension; M19.90 Unspecified osteoarthritis, unspecified site
CPT/HCPCS: 36415; 71045; 74176; 74181; 76705; 80053; 81001; 83690; 83735; 85025; 85610; 96361; 96365; 96375; 99284; J0131; J2250; J2405; J7030; A9270

== ENCOUNTER → 2024-10-23 | Outpatient (CLI) | payer OTHER, MEDICAID, SELFPAY ==
--- NOTE | 2024-10-23 10:00 | XR_ITS ---
Examination: Abdomen sonogram, complete Date and time of exam: October 23, 2024 0933 hours INDICATIONS: Right upper abdominal pain beginning several months ago, MRCP 10/17/2024 enlarged common bile duct but no common bile duct stones. Technique: Multiple real-time grayscale transabdominal sonographic images of the abdomen have been obtained. Findings: Normal gallbladder. Common bile duct 0.9 cm no stones Pancreatic head 1.2 cm Aorta not enlarged. Liver 12.7 cm no liver lesions. Normal hepatopedal portal venous flow Patent IVC Right kidney 8.9 cm cortex 1.3 cm Neck 89.1 cm cortex 1.0 cm Mild renal scar formation Spleen 7.3 cm IMPRESSION: Common bile duct 0.9 cm, no stones noted Liver normal size Small kidneys with bilateral renal cortical thinning. No hydronephrosis
--- NOTE | 2024-10-23 10:30 | XR_ITS ---
Examination: CT left hip, without contrast. CT pelvis without intravenous contrast 2-D sagittal reconstructions. 2-D coronal reconstructions. 3-D reconstructions. Date and time of exam:October 23, 2024 at 1009 hours CTDI: vol (mGy):5.90 DLP: (mGycm):196 Technique: Multiple 1.25 mm axial sections of the pelvis left hip have been obtained. 2-D sagittal and coronal reconstructions have been obtained. 3-D reconstructions have been obtained. Low dose protocols were performed. One or more of the following dose reduction techniques were used; automated exposure control, adjustment of the mA and/or KV according to patient size, use of iterative reconstruction technique. Findings: Colonic diverticulosis, no diverticulitis. Contracted urinary bladder. Sacral segments and iliac bones, acetabular regions and anterior rami are intact Bilateral mild to moderate hip osteoarthritis No left or right hip fracture or dislocation IMPRESSION: Mild to moderate bilateral hip osteoarthritis If hip pain persists, consider MRI left hip without contrast follow-up
== END | disposition home or self-care (01) ==
PROVIDERS: Referring Provider Nurse Practitioner Family; Visit Provider Nurse Practitioner Family
DX: N28.89 Other specified disorders of kidney and ureter (principal)
CPT/HCPCS: 73700; 76700

== ENCOUNTER → 2024-11-19 | Outpatient (CLI) | payer OTHER, MEDICAID, SELFPAY | END | disposition home or self-care (01) | LOC: SLDO 14:53 | PROVIDERS: PCP Nurse Practitioner Family; Referring Provider Nurse Practitioner Family; Visit Provider Nurse Practitioner Family | DX: N39.0 Urinary tract infection, site not specified (principal) | CPT/HCPCS: 87077; 87086; 87186 ==

== ENCOUNTER → 2024-12-26 | Outpatient (CLI) | payer OTHER, MEDICAID, SELFPAY ==
--- NOTE | 2024-12-26 12:56 | XR_ITS ---
EXAMINATION: Thoracic spine 3 views TECHNIQUE: AP lateral, lateral upper dorsal spine 3 views Date and time: December 26, 2024, 1336 hours INDICATIONS: Upper back pain beginning 2 years ago. FINDINGS: Severe osteopenia Upper thoracic dextroscoliosis of 12 degrees thoracolumbar levoscoliosis 9 degrees No acute thoracic fracture Mild kyphosis dorsal spine Moderate diffuse thoracic degenerative disc disease IMPRESSION: Moderate diffuse thoracic degenerative disc disease
== END | disposition home or self-care (01) ==
LOC: CDIM 12:36
PROVIDERS: PCP Family Medicine; Referring Provider Physical Medicine & Rehabilitation Pain Medicine; Visit Provider Physical Medicine & Rehabilitation Pain Medicine
DX: M51.34 Other intervertebral disc degeneration, thoracic region (principal)
CPT/HCPCS: 72072

== ENCOUNTER 2025-01-10 13:41 | Emergency (ER) | payer OTHER, MEDICAID, SELFPAY ==
[2025-01-10 13:45] VITALS: PULSE 86; O2SAT 98; BMI 21.6
--- NOTE | 2025-01-10 13:45 | XR_ITS ---
Examination: CT cervical spine without contrast 2-D sagittal reconstructions 2-D coronal reconstructions 3-D reconstructions. Exam date and time: January 10, 2025, 1515 hours INDICATIONS: Ground-level fall today with into the neck, neck pain COMPARISON: 01/2025 CTDI:vol (mGy) 12.9 DLP: (mGycm) 296 Technique: Multiple 2 mm axial sections of the cervical spine have been obtained. The coronal and sagittal reconstructions have been obtained. 3-D reconstructions have been obtained. Low dose protocols were performed. One or more of the following dose reduction techniques were used; automated exposure control, adjustment of the mA and/or KV according to patient size, use of iterative reconstruction technique. Findings: Axial sections demonstrate intact base of the skull. Advanced disc narrowing C3-C7 C1 exhibit satisfactory relationship to the odontoid. No acute cervical vertebral body fracture seen. Alignment posterior spinous processes satisfactory. Impression: No acute cervical fracture.
--- NOTE | 2025-01-10 13:45 | XR_ITS ---
Examination: CT brain head without contrast. 2-D sagittal coronal reconstructions Date and time of exam: January 10, 2025, 1514 hours INDICATIONS: Injury to the back of the head after falling today, head pain CTDI: vol (mGy): 46.0 DLP: (mGycm): 894 Technique: Multiple CT axial sections of the brain have been obtained, 5 mm slice thickness. Contrast has not been administered. 2-D sagittal, coronal reconstructions have been obtained Low dose protocols were performed. One or more of the following dose reduction techniques were used; automated exposure control, adjustment of the mA and/or KV according to patient size, use of iterative reconstruction technique. Findings: No significant ventricular enlargement. Intra-axial or extra-axial hemorrhage density is not seen. No mass effect or midline shift Basal cisterns are not remarkable. Fourth ventricle is midline. Cranial vault intact. Impression: Negative for acute hemorrhage, mass effect or midline shift
--- NOTE | 2025-01-10 13:45 | PC.NURSE ---
PT ARRIVED BY AMBULANCE FROM HOME S/P GROUND LEVEL TRIP AND FALL WITNESSED BY SON, NO LOC. PT C/O POSTERIOR HEAD AND NECK PAIN, LUMP TO BACK OF HEAD NOTED. PT ALSO C/O BILATERAL LEG PAIN WHICH IS CHRONIC. MOVED TO [facility] AND IN [facility] OUTSIDE ROOM 3 WAITING FOR ROOM TO BECOME AVAILABLE
--- NOTE | 2025-01-10 13:46 | XR_ITS ---
EXAMINATION: AP chest single view TECHNIQUE: AP portable semiupright chest single view Date and time: January 10, 2025, 1518 hours INDICATIONS: Patient fell today with injury to the chest, chest pain FINDINGS: Normal heart size No pneumothorax. Prominent osteopenia. Clavicles ribs appear intact IMPRESSION: No pneumothorax pulmonary contusion or hemothorax
--- NOTE | 2025-01-10 13:47 | EDNOTE_ITS ---
ED General RME/HPI General Chief complaint: Fall Stated complaint: HEAD AND NECK PAIN S/P FALL, NO LOC Time Seen by Provider: 01/10/25 13:45 Arrival date/time: 01/10/25 13:41 CC: Pain to back of head HPI patient presents to the ER via EMS who report via stable vital signs after a ground-level fall backwards. Striking the base of her head. Patient is complaining of occiput pain. Denies LOC although she is demented and exceedingly poor historian. The patient is mildly confused somewhat anxious but not in any acute distress. Related Data Home Medications ?Medication ?Instructions ?Recorded ?Confirmed levothyroxine 50 mcg capsule 50 mcg PO QDAY 04/20/21 0 10/17/24 amlodipine 5 mg tablet mg 10/17/24 ascorbic acid (vitamin C) 500 mg 500 mg PO QDAY 10/17/24 tablet (C-500) cetirizine 10 mg tablet mg 10/17/24 dicyclomine 10 mg capsule mg 10/17/24 donepezil 5 mg tablet mg 10/17/24 gabapentin 100 mg capsule mg 10/17/24 ibandronate 150 mg tablet mg PO 10/17/24 levothyroxine 50 mcg tablet mcg 10/17/24 pravastatin 10 mg tablet mg 10/17/24 sennosides 8.6 mg tablet (Senokot) 8.6 mg PO QDAY 10/0710/17/24 tramadol 50 mg tablet mg 10/17/24 Previous Rx's ?Medication ?Instructions ?Recorded pantoprazole 40 mg tablet,delayed 40 mg PO QDAY #30 ta bs 10/15/21 release (Protonix) ondansetron 4 mg disintegrating 4 mg PO Q6H PRN nausea and 03/15/24 tablet vomiting #14 tabs Held on 10/17/24. Instructions: Doctor's Order bisacodyl 5 mg tablet,delayed 10 mg (2 x 5 mg) PO QDAY 10/17/24 release (Dulcolax (bisacodyl)) CONSTIPATION #60 tabs lactulose 10 gram/15 mL oral 20 g (30 mL) PO QID CONST IPATION 10/17/24 solution #1,200 mL Allergies Allergy/AdvReac Type Severity Reaction Status Date / Time No Known Allergies Allergy Verified 01/10/25 13:50 Review of Systems Review of Systems Narrative Review of Systems: GEN: No fever, no chills, no weight loss EYES: No discharge, no visual changes, no pain HEENT: No ear pain, no congestion, no sore throat PULM: No shortness of breath, no cough, no congestion CV: No chest pain, no dyspnea on exertion, no palpitations GI: No nausea, no vomiting, no diarrhea, no pain, no constipation : No frequency, no urgency, no dysuria MUSC/SKEL: No joint pain, no back pain SKIN: No rash PSYCH: No hallucinations, no depression HEME/LYMPH: No easy bleeding or bruising tendencies NEURO: No weakness, + headache Past Medical History Past Medical History NEUROLOGIC: Negative Neurological Disorders or Seizures CARDIAC: Positive Cardiac Disorders, Deep Vein Thrombosis and Hypertension; Negative Congestive Heart Failure RESPIRATORY: Positive Pneumonia (2 YEARS AGO); Negative Chronic Obstructive Pulmonary Disease (COPD) GASTROINTESTINAL: Positive Gastrointestinal Disorders (ABDOMINAL PAIN AFTER EATING, CONSTIPATION) and Gastroesophageal Reflux Disease GENITOURINARY: Negative Genitourinary Disorders or Renal Disease REPRODUCTIVE: Positive Previous Pregnancies MUSCULOSKELETAL: Positive Musculoskeletal Disorders (CARPAL TUNNEL) and Carpal Tunnel Syndrome ENDOCRINE: Positive Endocrine Disorders and Hypothyroidism; Negative Diabetes Mellitus Type 1 or Diabetes Mellitus Type 2 HEMATOLOGIC: Negative Blood Disorders PSYCHO/SOCIAL: Positive Anxiety OTHER HISTORY: Positive Falls and Cancer; Negative Autoimmune Disease, Blood Transfusions, Blood Transfusion Reaction or Anesthesia Reactions Family History FAMILY HISTORY: Positive Family Cardiac Disorders, Family Gastrointestinal Problems, Family Cancer and Family Anesthesia Reaction; Negative Family Psychiatric Problems, Family Respiratory Disorders or Family Surgery Surgical History SURGICAL: Positive Hysterectomy Social History SMOKING STATUS: Never smoker ED Exam Narrative Physical exam: [General: Not in any acute distress Head mild tenderness and hematoma to the left occiput. No active bleeding. HEENT: Eyes pupils are PERRLA EOMs are intact mouth pink moist membranes uvula is midline swallow symmetrical within acceptable limits Neck is supple nontender to palpation. No spinous process tenderness with palpation full range of motion flexion extension. Chest equal chest rise nontender to palpation Respiratory: Clear to auscultation no wheezes crackles or rubs CV: Rate rhythm is regular no murmurs rubs or clicks Abdomen is soft nontender no masses positive bowel sounds all 4 quadrants but is positive for pelvic squeeze. Patient is flinching but not screaming in pain. Back: No CVA tenderness no spinous process tenderness from cervical spine thoracic and lumbar spine Skin: Intact no petechiae rash induration ulceration or crepitus Extremities: Moving all extremity against resistance cap refill less than 2 seconds neurosensory intact Neuro: Awake alert oriented x1, self. Course Course Course Narrative: Patient has had no deterioration in neurologic status throughout his visit to the emergency room we will discharge her home with an occiput contusion and fall Quality Measures none Orders Category Date Time Status CT cervical spine wo con Stat Exams 01/10/25 13:[address] head/brain wo con Stat Exams 01/10/25 13:45 Completed XR chest 1V Stat Exams 01/10/25 13:46 Completed XR pelvis 1-2V Stat Exams 01/10/25 13:51 Completed Vital Signs Vital signs: Vital Signs Temperature 98.2 F 01/10/25 14:24 Pulse Rate 72 01/10/25 14:24 Respiratory Rate 18 01/10/25 14:24 Blood Pressure 155/74 H 01/10/25 14:24 Pulse Oximetry (%) 100 01/10/25 14:24 Oxygen Delivery Method Room Air 01/10/25 14:24 Discharge Plan Plan Patient Disposition: HOME (Self Care) Patient condition on transfer: Stable Prescriptions/Referrals Prescriptions/Med Rec: No Action levothyroxine 50 mcg Capsule 50 mcg PO QDAY pantoprazole [Protonix] 40 mg tablet,delayed release (DR/EC) 40 mg PO QDAY Qty: 30 0RF ondansetron 4 mg tablet,disintegrating 4 mg PO Q6H PRN (Reason: nausea and vomiting) Qty: 14 0RF donepezil 5 mg tablet Patient Comments: TAKE 1 TABLET BY MOUTH EVERYDAY AT BEDTIME cetirizine 10 mg tablet Patient Comments: TAKE 1 TABLET BY MOUTH EVERY DAY IN THE MORNING amlodipine 5 mg tablet Patient Comments: TAKE 1 TABLET BY MOUTH EVERY DAY tramadol 50 mg tablet Patient Comments: TAKE 1 TABLET BY MOUTH EVERY DAY NEEDED pravastatin 10 mg tablet Patient Comments: TAKE 1 TABLET BY MOUTH EVERY DAY AT BEDTIME FOR 90 DAYS levothyroxine 50 mcg tablet Patient Comments: TAKE 1 TABLET BY MOUTH EVERY DAY IN THE MORNING ON EMPTY STOMACH gabapentin 100 mg capsule Patient Comments: TAKE 1 CAPSULE BY MOUTH AT BEDTIME dicyclomine 10 mg capsule Patient Comments: TAKE 1 CAPSULE BY MOUTH TWICE A DAY ibandronate 150 mg tablet PO Patient Comments: PLEASE SEE ATTACHED FOR DETAILED DIRECTIONS ascorbic acid (vitamin C) [C-500] 500 mg tablet 500 mg PO QDAY sennosides [Senokot] 8.6 mg tablet 8.6 mg PO QDAY lactulose 10 gram/15 mL solution 20 g PO QID MDD 120 ML Qty: 1200 2RF bisacodyl [Dulcolax (bisacodyl)] 5 mg tablet,delayed release (DR/EC) 10 mg PO QDAY MDD 10 MG Qty: 60 0RF Referrals: Hilario Jesus MD [Primary Care Provider, Family Practice] - In 1 week Problem List Clinical Impression: Fall, Contusion of occipital region of scalp Patient/Caregiver Discharge Instructions Education Materials: Preventing Falls How to ..., ED Scalp Contusion Print Language: Welsh Stand Alone Forms: Maame Award Info., Patient Portal Info Letter PA/TRAVEL ATTENDANTS Supervising Physician PA/TRAVEL ATTENDANTS Supervising Physician: Ole Catalan ENP [facility] Clinical Information Provided by: patient and EMS Medical Records reviewed [facility] and EMS Meds/Rx considered, not ordered None Labs/Rad/Tests considered, not ordered None Chronic Illness/Social Conditions Explain: Dementia Labs Labs: none Imaging Imaging interpretation: interpreted by me Imaging Interpretation(s): CT head and C-spine are negative Pelvis and chest x-ray are negative as well. Will discharge
--- NOTE | 2025-01-10 13:51 | XR_ITS ---
EXAMINATION: AP pelvis single view TECHNIQUE: Portable supine AP pelvis single view Date and time: January 10, 2025, 1523 hours INDICATIONS: Patient fell today with injury to the pelvis, pelvic pain. FINDINGS: Severe osteopenia No acute hip or pelvic fracture IMPRESSION: No acute hip or pelvic fracture noted
[2025-01-10 14:24] VITALS: BP 155/74; PULSE 72; RESP 18; TEMP 36.8; O2SAT 100
[2025-01-10 16:18] VITALS: BP 154/76; PULSE 72; RESP 19; TEMP 36.3; O2SAT 100
== END 2025-01-10 16:50 | disposition home or self-care (01) ==
PROVIDERS: Emergency Provider Family Medicine; PCP Family Medicine
DX: S00.03XA Contusion of scalp, initial encounter (principal); M54.2 Cervicalgia; S29.9XXA Unspecified injury of thorax, initial encounter; S39.93XA Unspecified injury of pelvis, initial encounter; F03.90 Unspecified dementia, unspecified severity, without behavioral disturbance, psychotic disturbance, mood disturbance, and anxiety; W18.30XA Fall on same level, unspecified, initial encounter
CPT/HCPCS: 70450; 71045; 72125; 72170; 99283

== ENCOUNTER 2025-01-12 15:16 | Emergency (ER) | payer OTHER, MEDICAID, SELFPAY ==
[2025-01-12 15:25] VITALS: BP 133/73; PULSE 90; RESP 20; TEMP 36.3; O2SAT 100
--- NOTE | 2025-01-12 15:33 | PD.EDABDPN ---
ED Abdominal Pain RME/HPI General Chief Complaint: Abdominal Pain Stated complaint: SEVERE ABD PAIN CHRONIC Time seen by provider: 01/12/25 15:24 Arrival date/time: 01/12/25 15:16 Limitations: no limitations RME / HPI MD complaint: abdominal pain Onset (ago): month(s) Consistency: constant Location: diffuse Severity: severe Quality: aching Relieving factors: nothing RME / HPI narrative: 84-year-old female presents the ED with history of chronic abdominal pain. However brought in by son who states she has severe dementia. Part of the time they do not know if she is actually having pain or if this is something she fixates on. Followed by GI at [facility]. Recent EGD. Less than [address] scan and ultrasound both benign. Followed by primary given for her pain dicyclomine, tramadol, gabapentin. Adult son states it is difficult to know when she is having something significant or just her dementia. No fever. No vomiting. No diarrhea. Related Data Home Medications ?Medication ?Instructions ?Recorded ?Confirmed levothyroxine 50 mcg capsule 50 mcg PO QDAY 04/20/21 10/17/24 amlodipine 5 mg tablet mg 10/17/24 ascorbic acid (vitamin C) 500 mg 500 mg PO QDAY 10/17/24 10/17/24 tablet (C-500) cetirizine 10 mg tablet mg 10/17/24 dicyclomine 10 mg capsule mg 10/17/24 donepezil 5 mg tablet mg 10/17/24 gabapentin 100 mg capsule mg 10/17/24 ibandronate 150 mg tablet mg PO 10/17/24 levothyroxine 50 mcg tablet mcg 10/17/24 pravastatin 10 mg tablet mg 10/17/24 sennosides 8.6 mg tablet (Senokot) 8.6 mg PO QDAY 10/17/24 10/17/24 tramadol 50 mg tablet mg 10/17/24 Previous Rx's ?Medication ?Instructions ?Recorded pantoprazole 40 mg tablet,delayed 40 mg PO QDAY #30 tabs 10/15/21 release (Protonix) ondansetron 4 mg disintegrating 4 mg PO Q6H PRN nausea and 03/15/24 tablet vomiting #14 tabs Held on 10/17/24. Instructions: Doctor's Order bisacodyl 5 mg tablet,delayed 10 mg (2 x 5 mg) PO QDAY 10/17/24 release (Dulcolax (bisacodyl)) CONSTIPATION #60 tabs lactulose 10 gram/15 mL oral 20 g (30 mL) PO QID CONSTIPATION 10/17/24 solution #1,200 mL amoxicillin 875 mg-potassium 1 tab PO BID 10 days #20 tabs 01/12/25 clavulanate 125 mg tablet sucralfate 1 gram tablet (Carafate) 1 g PO BID #30 tabs 01/12/25 Allergies Allergy/AdvReac Type Severity Reaction Status Date / Time doxycycline Allergy Verified 01/12/25 15:19 Review of Systems Review of Systems Narrative Review of Systems: Baseline mental status. It is difficult history Constitutional Constitutional: Denies fever(s) Gastrointestinal Gastrointestinal: Reports as per HPI ED Exam General Limitations: Present no limitations General appearance: Present alert and in no apparent distress Head Head exam: Present atraumatic Eye Eye exam: Present normal appearance, PERRL and EOMI ENT ENT exam: Present normal exam, normal oropharynx and mucous membranes moist Neck Neck exam: Present normal inspection, full ROM and trachea midline Chest Chest inspection: Present normal inspection and symmetric chest wall rise Respiratory Respiratory exam: Present normal lung sounds bilaterally Cardiovascular Cardiovascular exam: Present regular rate, normal rhythm and normal heart sounds Abdominal Exam Abdominal exam: Present soft and normal bowel sounds Extremities Exam Extremities exam: Present normal inspection and full ROM Back Exam Back exam: Present normal inspection and full ROM Neurological Exam Neurological exam: Present alert (Alert to person but not date or purpose; severe dementia) Psychiatric Psychiatric exam: Present normal affect and normal mood Skin Skin exam: Present warm, dry, intact and normal color Course Quality Measures none Orders Category Date Time Status CT Screening NOW Care 01/12/25 15:35 Completed EKG (ED ONLY) *Do not use* NOW Care 01/12/25 15:35 Completed IV [Insert IV] NOW Care 01/12/25 15:[address] abdomen pelvis w con Stat Exams 01/12/25 15:34 Completed EKG (ED Only) Stat Exams 01/12/25 15:34 Draft XR chest 2V Stat Exams 01/12/25 15:36 Completed BNP [B-Type Natriuretic Peptide] Stat Lab 01/12/25 16:38 Completed CBC Stat Lab 01/12/25 16:38 Completed CMP [Comprehensive Metabolic Panel] Stat Lab 01/12/25 16:38 Completed Lipase Stat Lab 01/12/25 16:38 Completed Troponin I Stat Lab 01/12/25 16:38 Completed UA [Urinalysis] Stat Lab 01/12/25 18:41 Completed ALPRazoLAM [Xanax] Med 01/12/25 18:37 Discontinued 1 mg PO X1 ONE Pantoprazole [Protonix] Med 01/12/25 15:36 Discontinued 40 mg PO X1 ONE Potassium Chloride [K-Dur] Med 01/12/25 18:37 Discontinued 20 meq PO X1 ONE Vital Signs Vital signs: Vital Signs Temperature 97.4 F 01/12/25 15:25 Pulse Rate 90 01/12/25 15:25 Respiratory Rate 20 01/12/25 15:25 Blood Pressure 133/73 H 01/12/25 15:25 Pulse Oximetry (%) 100 01/12/25 15:25 Oxygen Delivery Method Room Air 01/12/25 15:25 PROCEDURES: EKG Interpretation #1: Date of EK01/12/25 Time of EK:04 Rate: 66 Interpretation: Interpreted by me EKG Impression: Normal sinus rhythm and No acute ST-T changes Additional EKG comment: Essentially unchanged compared to April 2024 Abdominal Pain MDM MDM Narrative MDM Narrative:: Extensive workup to rule out surgical abdomen and severely demented patient. No signs of surgical abdomen. Explained to family dementia and thought loop.. Only significant finding today was hypokalemia which was corrected. For home started on Carafate to add to combination medications advised follow-up with PCP return to ER symptoms worsen Patient data External records reviewed:: [facility] previous records Clinical information provided by:: patient and family Social determinants that could affect healthcare access:: other (specify) (Elderly woman unable to care for self with severe dementia) Patient has the following chronic illnesses:: Dementia Chronic abdominal pain How is presenting disease/condition affected by chronic disease/condition?: exacerbated by Evaluation data The following diagnostics were reviewed and interpreted by me:: lab results and radiology exam(s) Lab and/or radiology exams considered but not ordered:: MRI of abdomen considered however unlikely to change the course of treatment today Interpretation Summary: CBC within normal limits CMP shows hypokalemia at 3.0 UA shows suggestion of uti, which would explain both abdominal pain and repetitive behavior Negative troponin negative BNP EKG within normal limits Chest x-ray no pneumonia however atelectasis noted Medications / Prescriptions Medications or Prescriptions considered but not ordered:: Antibiotics were considered however unlikely warranted given findings today Medication administrations:: Medication Administration History Discontinued Medications Alprazolam (Alprazolam 0.25 Mg Tablet) 1 mg PO X1 ONE Stop: 01/12/25 18:38 Last Admin: 01/12/25 19:28 Dose: 1 mg Documented By: KIM Pantoprazole Sodium (Pantoprazole 40 Mg Tablet) 40 mg PO X1 ONE Stop: 01/12/25 15:37 Last Admin: 01/12/25 16:11 Dose: 40 mg Documented By: CALVIN Potassium Chloride (Potassium Chloride 20 Meq Tabcr) 20 meq PO X1 ONE Stop: 01/12/25 18:38 Last Admin: 01/12/25 19:28 Dose: 20 meq Documented By: KIM See above Sent home on Carafate Consultations Consultation(s) initiated? (list below): No Diagnosis Differential diagnosis abdominal pain: abdominal pain, calculus of kidney, constipation, diverticulitis, endometriosis and pancreatitis Most likely diagnosis given after review of the tests above:: Chronic abdominal pain Hypokalemia Severe dementia Admission Indicated Admission indicated?: not indicated Admission Request Was there a request for admission?: No Disposition Plan Disposition Plan: Discharge Discharge Attestation Discharge Attestation: The patient and all family members were given an opportunity to ask questions and understood the discharge instructions. Discharge instructions specifically effects, indications for sooner follow up or return to the emergency department, and the expected course of current diagnosis. Patient condition: Stable Discharge Plan Plan Patient Disposition: HOME (Self Care) Discharge Disposition comment: f/u with pcp in 2-3days Prescriptions/Referrals Prescriptions/Med Rec: New sucralfate [Carafate] 1 gram tablet 1 g PO BID Qty: 30 0RF amoxicillin-pot clavulanate 875-125 mg tablet 1 tab PO BID 10 Days Qty: 20 0RF No Action levothyroxine 50 mcg Capsule 50 mcg PO QDAY pantoprazole [Protonix] 40 mg tablet,delayed release (DR/EC) 40 mg PO QDAY Qty: 30 0RF ondansetron 4 mg tablet,disintegrating 4 mg PO Q6H PRN (Reason: nausea and vomiting) Qty: 14 0RF donepezil 5 mg tablet Patient Comments: TAKE 1 TABLET BY MOUTH EVERYDAY AT BEDTIME cetirizine 10 mg tablet Patient Comments: TAKE 1 TABLET BY MOUTH EVERY DAY IN THE MORNING amlodipine 5 mg tablet Patient Comments: TAKE 1 TABLET BY MOUTH EVERY DAY tramadol 50 mg tablet Patient Comments: TAKE 1 TABLET BY MOUTH EVERY DAY NEEDED pravastatin 10 mg tablet Patient Comments: TAKE 1 TABLET BY MOUTH EVERY DAY AT BEDTIME FOR 90 DAYS levothyroxine 50 mcg tablet Patient Comments: TAKE 1 TABLET BY MOUTH EVERY DAY IN THE MORNING ON EMPTY STOMACH gabapentin 100 mg capsule Patient Comments: TAKE 1 CAPSULE BY MOUTH AT BEDTIME dicyclomine 10 mg capsule Patient Comments: TAKE 1 CAPSULE BY MOUTH TWICE A DAY ibandronate 150 mg tablet PO Patient Comments: PLEASE SEE ATTACHED FOR DETAILED DIRECTIONS ascorbic acid (vitamin C) [C-500] 500 mg tablet 500 mg PO QDAY sennosides [Senokot] 8.6 mg tablet 8.6 mg PO QDAY lactulose 10 gram/15 mL solution 20 g PO QID MDD 120 ML Qty: 1200 2RF bisacodyl [Dulcolax (bisacodyl)] 5 mg tablet,delayed release (DR/EC) 10 mg PO QDAY MDD 10 MG Qty: 60 0RF Referrals: Yovanny Jesus MD [Primary Care Provider, Family Practice] - In 1 week Problem List Clinical Impression: Abdominal pain, chronic, epigastric, Hypokalemia, Dementia, Acute UTI Patient/Caregiver Discharge Instructions Education Materials: Urinary Tract Infections in Women, Managing Chronic Pain Print Language: Romansh Stand Alone Forms: Maame Award Info., Patient Portal Info Letter PA/ORTHOPAEDIC TECHNOLOGIST Supervising Physician PA/ORTHOPAEDIC TECHNOLOGIST Supervising Physician: Dr. Vera
--- NOTE | 2025-01-12 15:34 | EKG_ITS ---
[facility], [place] Test Date: 2025-01-12 Pat Name: ANDREA FRANCE Department: Room: - Gender: Female Database Admin: : 1940 Requested By: Kellie Guerrero Order Number: [id number] Reading MD: Kellie Guerrero Measurements Intervals Maxwell Rate: 66 P: 63 HI: 156 QRS: 16 QRSD: 88 T: 35 QT: 419 QTc: 441 Interpretive Statements SINUS RHYTHM MODERATE ST DEPRESSION [0.05+ mV ST DEPRESSION] Compared to ECG 04/17/2024 02:16:39 Ventricular premature complex(es) no longer present ST (T wave) deviation still present /store/S0/[id number]/ecg/[id number].pdf
--- NOTE | 2025-01-12 15:34 | XR_ITS ---
Examination: CT abdomen with intravenous contrast CT pelvis with intravenous contrast 2-D coronal reconstructions 2-D sagittal reconstructions Date and time of exam: January 12, 2025, 1750 hours, comparison 10/23/2024 INDICATIONS: Severe abdominal pain today. CTDI: vol (mGy) 8.72 DLP: (mGycm) 388 Technique: Multiple axial sections of the abdomen and pelvis have been obtained. 64 slice high-resolution scanner used. 3 mm axial sections have been obtained, post intravenous injection 60 cc [id number] 2-D sagittal, coronal reconstructions obtained. Low dose protocols were performed. One or more of the following dose reduction techniques were used; automated exposure control, adjustment of the mA and/or KV according to patient size, use of iterative reconstruction technique. Findings: No focal liver or splenic lesions No gallstones Significant patient motion Mildly dilated pancreatic duct Common bile duct is not well visualized No hydronephrosis Aortic calcification no aneurysmal dilatation No pericecal inflammatory change No bowel obstruction Colonic diverticulosis, no diverticulitis Urinary bladder intact Absent uterus Severe osteopenia Grade 1 anterolisthesis L4 on L5 Advanced degenerative disc disease L5-S1 IMPRESSION: The entire study is significantly degraded by patient motion Mildly dilated pancreatic duct, recommend hepatobiliary sonography follow-up No renal or ureteral calculi No pericecal inflammatory change No bowel obstruction Scattered colonic diverticulosis, no diverticulitis Severe osteopenia
--- NOTE | 2025-01-12 15:36 | XR_ITS ---
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
[2025-01-12] MEDS: PANTOPRAZOLE 40 MG TABLET PO (16:11)
[2025-01-12 16:44] VITALS: BP 146/67; PULSE 81; RESP 24; TEMP 36.4; O2SAT 100
[2025-01-12 16:57] LABS: Basophils # (Auto) 0.0 Thou/mm3 (0.0-0.2); Basophils % (Auto) 1 % (0-2.5); Eosinophils # (Auto) 0.2 Thou/mm3 (0.0-0.5); Eosinophils % (Auto) 2 % (0-10); Hematocrit 39.9 % (36.0-46.0); Hemoglobin 13.6 g/dL (12.0-16.0); Immature Granulocytes Auto 0.01 Thou/mm3 (0.00-0.00); Lymphocytes # (Auto) 3.2 Thou/mm3 (1.0-4.8); Lymphocytes % (Auto) 44 % (10-50); Mean Corpuscular HGB Conc 34.1 g/dl (31.0-37.0); Mean Corpuscular Hemoglobin 31.7 pg (25.0-35.0); Mean Corpuscular Volume 93 fL (80-100); Monocytes # (Auto) 0.6 Thou/mm3 (0.0-0.8); Monocytes % (Auto) 9 % (0-12); Neutrophils # (Auto) 3.3 Thou/mm3 (1.8-7.7); Neutrophils % (Auto) 45 % (37-80); Nucleated Red Blood Cell # 0.00 Thou/mm3 (0.00-0.00); Nucleated Red Blood Cell % 0 /100 WBC (0); Platelet Count 275 Thou/mm3 (140-440); RDW Standard Deviation 42.4 fL (36.4-46.3); Red Blood Count 4.29 Miln/mm3 (4.00-5.20); White Blood Count 7.4 Thou/mm3 (3.6-11.0)
[2025-01-12 17:24] LABS: B-Type Natriuretic Peptide 26 pg/mL (0-100)
[2025-01-12 17:27] LABS: Alanine Aminotransferase 11 U/L (10-49); Albumin, Serum 4.4 gm/dL (3.4-4.8); Albumin/Globulin Ratio 1.5 (1.2-2.2); Alkaline Phosphatase 60 U/L (46-116); Anion Gap 15 (7-16); Aspartate Amino Transferase 25 U/L (0-34); BUN/Creatinine Ratio 8 Ratio (12-20); Bilirubin,Total 0.7 mg/dL (0.3-1.2); Blood Urea Nitrogen 7 mg/dL (9-23); Calcium 9.7 mg/dL (8.3-10.6); Calcium (Corrected) 9.7 mg/dL (8.5-10.1); Carbon Dioxide 19.2 mMol/L (20.0-31.0); Chloride 110 mMol/L (98-107); Creatinine (Component) 0.9 mg/dL (0.6-1.3); Globulin 2.9 gm/dL (2.3-3.5); Glucose 82 mg/dL (74-106); Lipase 33 U/L (12-53); Osmolality,Calculated 283 (275-295); Potassium 3.0 mMol/L (3.4-5.1); Sodium 144 mMol/L (136-145); Total Protein 7.3 gm/dL (5.7-8.2); Troponin I < 0.020 ng/mL (0.0-0.045); eGFR > 60 See Note
--- NOTE | 2025-01-12 18:10 | PC.NURSE ---
attempted to in/out pt for urine sample, pt uncooperative and not allowing for collection of UA. provider informed.
[2025-01-12 18:43] VITALS: BP 140/82; PULSE 82; RESP 16; O2SAT 100
[2025-01-12 18:50] LABS: Collection Type, Urine Clean Catch
[2025-01-12 19:01] LABS: Bacteria,Urine 1+; Bilirubin,Urine Negative (Negative); Blood,Urine Negative (Negative); Clarity,Urine Turbid (Clear/Hazy); Color,Urine Lt-Yellow (Lt Yel-Yel); Glucose, Urine Negative (Negative); Ketones,Urine Negative (Negative); Leukocyte Esterase,Urine Positive (Negative); Nitrite,Urine Negative (Negative); PH,Urine 7.0 (5.0-7.0); Protein,Urine Negative (Neg - Trace); RBC,Urine 3 /hpf (0-3); Specific Gravity,Urine 1.012 (1.001-1.035); Squamous Epithelial Cell,Urine 1 /hpf (0-5); Urobilinogen,Urine Negative mg/dL (0.0-1.0); WBC,Urine 49 /hpf (0-5)
[2025-01-12 19:46] VITALS: BP 143/86; PULSE 79; RESP 17; TEMP 36.4; O2SAT 100
== END 2025-01-12 20:33 | disposition home or self-care (01) ==
PROVIDERS: Physician Assistant; Emergency Provider Emergency Medicine; PCP Family Medicine
DX: N39.0 Urinary tract infection, site not specified (principal); E87.6 Hypokalemia; J98.11 Atelectasis; F03.90 Unspecified dementia, unspecified severity, without behavioral disturbance, psychotic disturbance, mood disturbance, and anxiety; R10.13 Epigastric pain; G89.29 Other chronic pain; R94.31 Abnormal electrocardiogram [ECG] [EKG]
CPT/HCPCS: 36415; 71046; 74177; 80053; 81001; 83690; 83880; 84484; 85025; 93005; 99283; A4649; Q9967; A9270